=== PATIENT | male | born 1980 | race Caucasian/White ===

== ENCOUNTER 2024-09-20 10:39 | Emergency (ER) | payer MEDICARE, MEDICAID, SELFPAY ==
--- NOTE | ~2024-09-20 | XR_ITS ---
EXAM/PROCEDURE: XR chest 2V - 09/20/2024 12:00 CDT HISTORY: 44 years old Male with AMS TECHNIQUE: Two view(s) of the chest. COMPARISON: None available. FINDINGS: LUNGS/ PLEURA: No focal consolidation. No appreciable pneumothorax or large pleural effusion. HEART/ MEDIASTINUM: Heart appears normal in size. BONES: No acute osseous abnormality. OTHER: Visualized upper abdomen is unremarkable. IMPRESSION: No acute process. Reviewed, dictated and finalized at location A. IMPRESSION: No acute process.
[2024-09-20 11:01] VITALS: BP 117/75; PULSE 103; RESP 16; TEMP 36.6; O2SAT 100
--- OUTSIDE RECORDS SUMMARY | 2024-09-20 11:42 | XMS_ITS | Encounter Summary ---
Author Organization [facility] Address [address] [place] [address] Phone Care Team Providers Care Employee Benefits Coordinator Name Role Phone Genaro Joseph DPM Unavailable [phone] Luis E Trent MD Unavailable Gregoria Carver PAC Primary Care Pro vider Reason for Visit * Reason Comments Medication Refill Encounter Details Date Type Department Care Team (Late st Contact Info) Description 08/15/2023 Refill [facility] - Internal Medicine [facility] [address] [place] [address] Tavo Vargas MD [address] [address] Medication Refill Social History Tobacco Use Types Packs/Day Years Used Date Smoking Tobacco: Every Day Cigarettes Last attempted to quit: 06/16/2021 Cigars Passive Smoke Exposure: Current Smokeless Tobacco: Never Alcohol Use Standard Drinks/Week Comments Not Currently 0 (1 standard drink = 0.6 oz pure alcohol) beer and wine coolers occaisionally. [facility] Utilities Answer Date Recorded In the past 12 months has e electric, gas, oil, or water company threatened to shut off services in your home? Patient unable to answer 06/07/2023 Social Connection and Isolation Panel Answer Date Recorded In a typical week, how many times do you talk on the phone with family, friends, or neighbors? Patient unable to answer 06/07/2023 How often do you get togethe r with friends or relatives? Patient unable to answer 06/07/2023 How often do you attend chur ch or holiness services? Patient unable to answer 06/07/2023 Do you belong to any clubs o r organizations such as pentecostal groups, unions, fraternal or athletic groups, or school groups? Patient unable to answer 06/07/2023 How often do you attend meet ings of the clubs or organizations you belong to? Patient unable to answer 06/07/2023 Are you , , di vorced, , never , or living with a partner? Patient unable to answer 06/07/2023 AUDIT-C Answer Date Recorded Q1: How often do you have a drink containing alcohol? Patient unable to answer 06/07/2023 Q2: How many drinks containi ng alcohol do you have on a typical day when you are drinking? Patient unable to answer Q3: How often do you have si x or more drinks on one occasion? Patient unable to answer 06/07/2023 Overall Financial Resource Strain (CARDIA) Answe r Date Recorded How hard is it for you to pa y for the very basics like food, housing, medical care, and heating? Patient unable to answer 06/07/2023 PHQ-2 Answer Date Recorded Total Score - Questions 1-9 0 05/11 Exercise Vital Sign Answer Date Recorde d On average, how many days pe r week do you engage in moderate to strenuous exercise (like a brisk walk)? Patient unable to answer 06/07/2023 On average, how many minutes do you engage in exercise at this level? Patient unable to answer 06/07/2023 Hunger Vital Sign Answer Date Recorded Within the past 12 months, y ou worried that your food would run out before you got the money to buy more. Patient unable to answer 06/07/2023 Within the past 12 months, t he food you bought just didn't last and you didn't have money to get more. Patient unable to answer 06/07/2023 PRAPARE - Transportation Answer Date Re corded In the past 12 months, has l ack of transportation kept you from medical appointments or from getting medications? Patient unable to answer 06/07/2023 In the past 12 months, has l ack of transportation kept you from meetings, work, or from getting things needed for daily living? Patient unable to answer 06/07/2023 Housing Stability Vital Sign Answer Esteban e Recorded In the last 12 months, was t here a time when you were not able to pay the mortgage or rent on time? Patient unable to answer 06/07/2023 In the last 12 months, how m any places have you lived? 1 06/07/2023 In the last 12 months, was t here a time when you did not have a steady place to sleep or slept in a alf (including now)? Patient unable to answer 06/07/2023 Education Answer Date Recorded What is the highest level of school you have completed or the highest degree you have received? 12th grade 05/25/2022 Sexually Active Control Partners Comments Not Currently Sex and Gender Information Value Date Recorded Sex Assigned at Not on file Legal Sex Male 7:37 PM CDT Gender Identity Male 05/31/2024 12:34 PM CDT Sexual Orientation Not on file documented as of this encounter Miscellaneous Notes * Telephone Encounter - Sherin Sierra RN - 08/15/2023 9:01 AM CDT Medication failed the protocol, provider to review and approve the medication order if appropriate. Requested Prescriptions Pending Prescriptions Disp Refills atorvastatin (LIPITOR) 40 MG Tablet [Pharmacy Med Name: Atorvastatin Calcium 40MG TABS] 28 Tablet 0 Sig: TAKE 1 TABLET BY MOUTH EVERY EVENING Hmg CoA Reductase Inhibitors Protocol Failed - 08/15/2023 8:43 AM Failed - Lipid panel in past 12 months LDL Date Value Ref Range Status 05/31/2022 67 5 - 130 mg/dL Final HDL CHOLESTEROL Date Value Ref Range Status 05/31/2022 38.1 (L) >40 mg/dL Final CHOLESTEROL Date Value Ref Range Status 05/31/2022 117 <=200 mg/dL Final TRIGLYCERIDES Date Value Ref Range Status 05/31/2022 60 <150 mg/dL Final VLDL Date Value Ref Range Status 05/31/2022 12 5 - 55 mg/dL Final CHOL/HDL RATIO Date Value Ref Range Status 05/31/2022 3.1 0.0 - 4.4 Final NON-HDL CHOLESTEROL Date Value Ref Range Status 05/31/2022 78.9 <130 mg/dL Final Passed - Visit with relevant provider in past 12 months or upcoming 90 days Recent Visits Date Type Provider Dept 06/07/23 Office Visit Gregoria Carver, PAC [facility] 02/28/23 Office Visit Gregoria Carver, PAC [facility] 01/31/23 Office Visit Gregoria Carver, PAC [facility] 10/03/22 Office Visit Greogria Carver, PAC [facility] 09/19/22 Office Visit Gregoria Carver, PAC [facility] Showing recent visits within past 365 days and meeting all other requirements Future Appointments Date Type Provider Dept 08/29/23 Appointment Gregoria Carver, PAC [facility] Showing future appointments within next 90 days and meeting all other requirements Passed - CMP in past 12 months SODIUM Date Value Ref Range Status 05/23/2023 137 136 - 145 mmol/L Final POTASSIUM Date Value Ref Range Status 05/23/2023 3.8 3.5 - 5.1 mmol/L Final CHLORIDE Date Value Ref Range Status 05/23/2023 108 (H) 98 - 107 mmol/L Final CO2, VENOUS Date Value Ref Range Status 05/23/2023 20 (L) 22 - 30 mmol/L Final ANION GAP Date Value Ref Range Status 05/23/2023 12.8 <18.0 mmol/L Final GLUCOSE Date Value Ref Range Status 05/23/2023 120 (H) 70 - 99 mg/dL Final BUN Date Value Ref Range Status 05/23/2023 13 9 - 21 mg/dL Final CREATININE, BLOOD Date Value Ref Range Status 05/25/2023 0.87 0.70 - 1.30 mg/dL Final BUN/CREATININE RATIO Date Value Ref Range Status 05/23/2023 15 12 - 20 ratio Final TOTAL PROTEIN Date Value Ref Range Status 05/23/2023 6.6 6.3 - 8.2 g/dL Final ALBUMIN Date Value Ref Range Status 05/23/2023 3.7 3.5 - 5.0 g/dL Final A/G RATIO Date Value Ref Range Status 05/23/2023 1.3 1.0 - 2.2 Final CALCIUM Date Value Ref Range Status 05/23/2023 8.8 8.7 - 10.5 mg/dL Final T BILI Date Value Ref Range Status 05/23/2023 0.3 0.2 - 1.2 mg/dL Final SGOT (AST) Date Value Ref Range Status 05/23/2023 25 5 - 34 U/L Final SGPT (ALT) Date Value Ref Range Status 05/23/2023 31 0 - 55 U/L Final ALKALINE PHOSPHATASE Date Value Ref Range Status 05/23/2023 76 40 - 150 U/L Final GFR, EST. NONAFRICAN Date Value Ref Range Status 05/25/2023 >60 >=60 Final GFR, EST. Date Value Ref Range Status 05/25/2023 >60 >=60 Final GFR, ESTIMATED Date Value Ref Range Status 05/25/2023 >60 >=60 Final Comment: Creatinine Clearance is the preferred criteria for selecting drug dose adjustments in renally impaired patients. The GFR is provided as additional pertinent clinical information. GFR is reported in mL/min/1.73 sq m. Calculation based on the Chronic Kidney Disease Epidemiology Collaboration (CKD- EPI) equation refitwithout adjustment for race. IS THE PATIENT REQUIRED TO BE FASTING? Date Value Ref Range Status 05/31/2022 No Final documented in this encounter Plan of Treatment Upcoming Encounters Date Type Department Care Team (Late st Contact Info) Description 10/14/2024 11:30 AM CDT Office Visit [facility] [address] [place] [address] Billy Hubbard MD [address] [place] [address] Discharge Disposition: Discharged to home or Selfcare 11/27/2024 11:00 AM CDT Office Visit [facility] - Endocrinology [facility] [address] [place] [address] Luis E Trent MD [address] [place] [facility] [address] [place] [address] 12/04/2024 2:00 PM CDT Office Visit [facility] - Internal Medicine [facility] [address] [place] [address] Gregoria Carver, PAC [address] [place] [address] documented as of this encounter Visit Diagnoses Not on filedocumented in this encounter Additional Health Concerns Assessment Noted Time PHQ-9 Depression Total Score: 0 05/26/19 23 1:00 PM CDT documented as of this encounter Care Teams Employee Benefits Coordinator Relationship Specialty Start Date End Date Gregoria Carver, PAC [address] [place] [address] PCP - General Physician Relationship Banker 02/22/21 Genaro Joseph DPM Consulting Physician Podiatry 10/19/15 Luis E Trent MD [address] [address] Consulting Physician Endocrinology 03/31/20 documented as of this encounter
--- OUTSIDE RECORDS SUMMARY | 2024-09-20 11:42 | XMS_ITS | Encounter Summary ---
Author Organization [facility] Address [address] [place] [address] Phone Care Team Providers Care Artificial Flower Maker Name Role Phone Genaro Joseph DPM Unavailable [phone] Luis E Trent MD Unavailable Gregoria Carver PAC Primary Care Pro vider Reason for Visit * Reason Comments Medication Refill Encounter Details Date Type Department Care Team (Late st Contact Info) Description 06/13/2023 Refill [facility] - Internal Medicine - [place] [address] [place] [address] Gregoria Carver, PAC [address] [facility] [address] Medication Refill Social History Tobacco Use Types Packs/Day Years Used Date Smoking Tobacco: Every Day Cigarettes Last attempted to quit: 06/16/2021 Cigars Passive Smoke Exposure: Current Smokeless Tobacco: Never Alcohol Use Standard Drinks/Week Comments Not Currently 0 (1 standard drink = 0.6 oz pure alcohol) beer and wine coolers occaisionally. [facility] Utilities Answer Date Recorded In the past 12 months has [employer], gas, oil, or water company threatened to [...] 06/07/2023 How often do you attend chur or holiness services? Patient unable to answer 06/07/2023 Do you belong to any clubs o r organizations such as latter-day groups, unions, fraternal or athletic groups, or [...] place to sleep or slept in a assisted (including now)? Patient unable to answer 06/07/2023 [...] Telephone Encounter - Sherin Sierra RN - 06/13/2023 10:18 AM CDT Medication failed the protocol, provider to review and approve the medication order if appropriate. Requested Prescriptions Pending Prescriptions Disp Refills atorvastatin (LIPITOR) 40 MG Tablet [Pharmacy Med Name: Atorvastatin Calcium 40MG TABS] 28 Tablet 0 Sig: TAKE 1 TABLET BY MOUTH EVERY EVENING Hmg CoA Reductase Inhibitors Protocol Failed - 06/13/2023 9:23 AM Failed - Lipid panel in past [...] Office Visit Gregoria Carver, PAC [facility] 02/28/23 Office Visit Gregoria Carver, PAC [facility] 01/31/23 Office Visit Gregoria Carver, PAC [facility] 10/03/22 Office Visit Gregoria Carver, PAC [facility] 09/19/22 Office Visit Gregoria Carver, PAC [facility] Showing recent visits within past 365 days and meeting all other requirements Future Appointments Date Type Provider Dept 08/29/23 Appointment Gregoria Carver, PAC [facility] Showing future appointments within next 90 [...] Value Ref Range Status 05/31/2022 No Final lisinopril (PRINIVIL, ZESTRIL) 40 MG Tablet [Pharmacy Med Name: Lisinopril 40MG TABS] 28 Tablet 0 Sig: TAKE 1 TABLET BY MOUTH DAILY FOR BLOOD PRESSURE KATIE Inhibitors Protocol Passed - 06/13/2023 9:23 AM Passed - Serum potassium on record in past 12 months POTASSIUM Date Value Ref Range Status 05/23/2023 3.8 3.5 - 5.1 mmol/L Final Passed - Blood pressure on record in past 12 months Clinician-entered: BP Readings from Last 3 Encounters: 06/07/23 106/58 05/30/23 110/76 05/25/23 112/68 Patient-entered: No data recorded Passed - Visit with relevant provider in past 12 months or upcoming 90 days Recent Visits Date Type Provider Dept 06/07/23 Office Visit Gregoria Carver PAC [facility] 02/28/23 Office [facility] 01/31/23 Office Visit Gregoria Carver, PAC [facility] 10/03/22 Office Visit Gregoria Carver, PAC [facility] 09/19/22 Office Visit Gregoria Carver, PAC [facility] Showing recent visits within past 365 days and meeting all other requirements Future Appointments Date Type Provider Dept 08/29/23 Appointment Gregoria Carver, PAC [facility] Showing future appointments within next 90 days and meeting all other requirements Passed - GFR on record in past 12 months GFR, EST. NONAFRICAN Date Value Ref Range Status 05/25/2023 >60 >=60 Final documented in this encounter Plan of Treatment Upcoming Encounters Date Type Department Care Team (Late st Contact Info) Description 10/14/2024 11:30 AM CDT Office Visit [facility] [address] [place] [address] Billy Hubbard MD [address] [place] [address] Discharge Disposition: Discharged to home or Selfcare 11/27/2024 11:00 AM CDT Office Visit [facility] - Endocrinology [facility] [address] [place] [address] Luis E Trent MD [address] [address] 12/04/2024 2:00 PM CDT Office Visit [facility] - Internal Medicine - [place] [address] [place] [address] Gregoria Carver, PAC [address] [place] [address] documented as of this encounter Visit Diagnoses Not on filedocumented in this encounter Additional Health Concerns Assessment Noted Time PHQ-9 Depression Total Score: 0 05/26/19 23 1:00 PM CDT documented as of this encounter Care Teams Artificial Flower Maker Relationship Specialty Start Date End Date Gregoria Carver, PAC [address] [place] [address] PCP - General Physician Watchmaker Apprentice 02/22/21 Genaro Joseph DPM Consulting Physician Podiatry 10/19/15 Luis E Trent MD [address] [address] Consulting Physician Endocrinology 03/31/20 documented as of this encounter
--- OUTSIDE RECORDS SUMMARY | 2024-09-20 11:42 | XMS_ITS | Encounter Summary ---
Author Organization [facility] Address [address] [place] [address] Phone Care Team Providers Care Records Tech Name Role Phone Genaro Joseph DPM Unavailable [phone] Luis E Trent MD Unavailable Gregoria Carver PAC Primary Care Pro vider Reason for Visit * Reason Comments Medication Refill Encounter Details Date Type Department Care Team (Late st Contact Info) Description 12/07/2021 Refill [facility] [address] [place] [address] Luis E Trent MD [address] [address] Medication Refill Social History Tobacco Use Types Packs/Day Years Used Date Smoking Tobacco: Former Cigarettes Q uit: 06/16/2021 Cigars Smokeless Tobacco: Never Alcohol Use Standard Drinks/Week Comments Not Currently 0 (1 standard drink = 0.6 oz pure alcohol) beer and wine coolers occaisionally. PHQ-2 Answer Date Recorded Total Score - Questions 1-9 0 04/0 09/2021 Sexually Active Control Partners Comments Not Currently Sex and Gender Information Value Date Recorded Sex Assigned at Not on file Legal Sex Male 7:37 PM CDT Gender Identity Male 05/31/2024 12:34 PM CDT Sexual Orientation Not on file COVID-19 Exposure Response Date Recorded In the last 10 days, have yo u been in contact with someone who was confirmed or suspected to have Coronavirus/COVID-19? No / Unsure 11/30/2021 10:30 AM CDT documented as of this encounter Miscellaneous Notes * Telephone Encounter - Iqra Rodriguez, RN - 12/07/2021 11:54 AM CDT Requested Prescriptions Pending Prescriptions Disp Refills ??? B-D ULTRAFINE III SHORT PEN 31G X 8 MM Misc [Pharmacy Med Name: BD UF SHORT PEN NEEDLE [id number]]3 Sig: USE WITH INSULIN FOUR TIMES A DAY, MUST MAKE APPT Next appt: 12/30/2021 documented in this encounter Plan of Treatment Upcoming Encounters Date Type Department Care Team (Late st Contact Info) Description 10/14/2024 11:30 AM CDT Office Visit [facility] [address] [place] [address] Billy Hubbard MD [address] [place] [address] Discharge Disposition: Discharged to home or Selfcare 11/27/2024 11:00 AM CDT Office Visit [facility] [address] [place] [address] Luis E Trent MD #[address] [address] 12/04/2024 2:00 PM CDT Office Visit [facility] - Internal Medicine - [place] [address] [place] [id number] Gregoria Carver, [facility] [address] [place] [address] documented as of this encounter Visit Diagnoses Diagnosis Type 2 diabetes mellitus with diabetic polyneuropathy, with long-term current use of insulin (HCC) documented in this encounter Additional Health Concerns Infection Onset Date Last Indicated Resolved Time 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
--- OUTSIDE RECORDS SUMMARY | 2024-09-20 11:42 | XMS_ITS | Encounter Summary ---
Author Organization [facility] Address [address] [place] [address] Phone Care Team Providers Care Blowing Weasand Name Role Phone Genaro Joseph DPM Unavailable [phone] Luis E Trent MD Unavailable Gregoria Carver PAC Primary Care Pro vider Reason for Visit * Reason Comments Medication Refill Encounter Details Date Type Department Care Team (Late st Contact Info) Description 05/16/2023 Refill [facility] Medical Group - Internal Medicine - [place] [address] [place] [address] Gregoria Carver, PAC [address] [facility] [address] Medication Refill Social History Tobacco Use Types Packs/Day Years Used Date Smoking Tobacco: Former Cigarettes Q uit: 06/16/2021 Cigars Passive Smoke Exposure: Current Smokeless Tobacco: Never Alcohol Use Standard Drinks/Week Comments Not Currently 0 (1 standard drink = 0.6 oz pure alcohol) beer and wine coolers occaisionally. [facility] Utilities Answer Date Recorded In the past 12 months has [employer], gas, oil, or water [employer] threatened to shut off services in your home? Already shut off 05/19/2023 PHQ-2 Answer Date Recorded Total Score - Questions 1-9 0 05/11 Hunger Vital Sign Answer Date Recorded Within the past 12 months, y ou worried that your food would run out before you got the money to buy more. Never true 05/19/19 24 Within the past 12 months, t he food you bought just didn't last and you didn't have money to get more. Never true 05/19/2023 PRAPARE - Transportation Answer Date Re corded In the past 12 months, has l ack of transportation kept you from medical appointments or from getting medications? No 10/2023 In the past 12 months, has l ack of transportation kept you from meetings, work, or from getting things needed for daily living? No 05/19/2023 Housing Stability Vital Sign Answer Esteban e Recorded In the last 12 months, was t here a time when you were not able to pay the mortgage or rent on time? No 05/19/2023 In the last 12 months, how many places have you lived? 1 05/19/2023 In the last 12 months, was t here a time when you did not have a steady place to sleep or slept in a half-way (including now)? No 05/19/2023 Education Answer Date Recorded What is the [...] Telephone Encounter - Sherin Sierra RN - 05/17/2023 9:43 AM CST Medication(s) refilled and signed per [facility] Chronic Medication Refill Standing Order for Pediatricand Adult Patients. Requested Prescriptions Pending Prescriptions Disp Refills lisinopril (PRINIVIL, ZESTRIL) 40 MG Tablet [Pharmacy Med Name: Lisinopril 40MG TABS] 28 Tablet 0 Sig: TAKE 1 TABLET BY MOUTH DAILY FOR BLOOD PRESSURE KATIE Inhibitors Protocol Passed - 05/16/2023 1:19 PM Passed - Serum potassium on record in past 12 months POTASSIUM Date Value Ref Range Status 05/12/2023 4.0 3.5 - 5.1 mmol/L Final Passed - Blood pressure on record in past 12 months Clinician-entered: BP Readings from Last 3 Encounters: 05/12/23 (!) 143/94 03/22/23 112/74 02/28/23 110/72 Patient-entered: No data recorded Passed - Visit with relevant provider in past 12 months or upcoming 90 days Recent Visits Date Type Provider Dept 02/28/23 Office Visit Gregoria Carver, PAC [facility] 01/31/23 Office Visit Gregoria Carver, PAC [facility] 10/03/22 Office Visit Gregoria Carver, PAC [facility] 09/19/22 Office Visit Gregoria Carver, PAC [facility] 05/25/22 Office Visit Gregoria Carver PAC [facility] Showing recent visits within past 365 days and meeting all other requirements Future Appointments No visits were found meeting these conditions. Showing future appointments within next 90 days and meeting all other requirements Passed - GFR on record in past 12 months GFR, EST. NONAFRICAN Date Value Ref Range Status 05/12/2023 >60 >=60 Final atorvastatin (LIPITOR) 40 MG Tablet [Pharmacy Med Name: Atorvastatin Calcium 40MG TABS] 28 Tablet 0 Sig: TAKE 1 TABLET BY MOUTH EVERY EVENING Hmg CoA Reductase Inhibitors Protocol Passed - 05/16/2023 1:19 PM Passed - Visit with relevant provider in past 12 months or upcoming 90 days Recent Visits Date Type Provider Dept 02/28/23 Office Visit Gregoria Carver, PAC [facility] 01/31/23 Office Visit Gregoria Carver, PAC [facility] 10/03/22 Office Visit Gregoria Carver, PAC [facility] 09/19/22 Office Visit Gregoria Carver, PAC [facility] 05/25/22 Office Visit Gregoria Carver, PAC [facility] Showing recent visits within past 365 days and meeting all other requirements Future Appointments No visits were found meeting these conditions. Showing future appointments within next 90 days and meeting all other requirements Passed - Lipid panel in past 12 months [...] 05/31/2022 78.9 <130 mg/dL Final Passed - CMP in past 12 months SODIUM Date Value Ref Range Status 05/12/2023 132 (L) 136 - 145 mmol/L Final POTASSIUM Date Value Ref Range Status 05/12/2023 4.0 3.5 - 5.1 mmol/L Final CHLORIDE Date Value Ref Range Status 05/12/2023 103 98 - 107 mmol/L Final CO2, VENOUS Date Value Ref Range Status 05/12/2023 21 (L) 22 - 30 mmol/L Final ANION GAP Date Value Ref Range Status 05/12/2023 12.0 <18.0 mmol/L Final GLUCOSE Date Value Ref Range Status 05/12/2023 88 70 - 99 mg/dL Final BUN Date Value Ref Range Status 05/12/2023 23 (H) 9 - 21 mg/dL Final CREATININE, BLOOD Date Value Ref Range Status 05/12/2023 0.86 0.70 - 1.30 mg/dL Final BUN/CREATININE RATIO Date Value Ref Range Status 05/12/2023 27 (H) 12 - 20 ratio Final TOTAL PROTEIN Date Value Ref Range Status 05/12/2023 7.3 6.3 - 8.2 g/dL Final ALBUMIN Date Value Ref Range Status 05/12/2023 4.4 3.5 - 5.0 g/dL Final A/G RATIO Date Value Ref Range Status 05/12/2023 1.5 1.0 - 2.2 Final CALCIUM Date Value Ref Range Status 05/12/2023 8.5 (L) 8.7 - 10.5 mg/dL Final T BILI Date Value Ref Range Status 05/12/2023 0.5 0.2 - 1.2 mg/dL Final SGOT (AST) Date Value Ref Range Status 05/12/2023 18 5 - 34 U/L Final SGPT (ALT) Date Value Ref Range Status 05/12/2023 17 0 - 55 U/L Final ALKALINE PHOSPHATASE Date Value Ref Range Status 05/12/2023 84 40 - 150 U/L Final GFR, EST. NONAFRICAN Date Value Ref Range Status 05/12/2023 >60 >=60 Final GFR, EST. Date Value Ref Range Status 05/12/2023 >60 >=60 Final GFR, ESTIMATED Date Value Ref Range Status 05/12/2023 >60 >=60 Final Comment: Creatinine Clearance is [...] Value Ref Range Status 05/31/2022 No Final TROENCEPHALOGRAPH TECHNICIAN documented in this encounter Plan of Treatment Upcoming Encounters Date Type Department Care Team (Late st Contact Info) Description 10/14/2024 11:30 AM CDT [facility] [address] [place] [id number] Billy Hubbard MD [address] [place] [address] Discharge Disposition: Discharged to home or Selfcare 11/27/2024 11:00 AM CDT Office Visit [facility] Medical Group - Endocrinology [facility] #[address] [place] [id number] Luis E Trent MD [address] [address] 12/04/2024 2:00 PM CDT Office [facility] - [facility] - [place] [address] [place] [phone] Gregoria Carver, PAC [address] [place] [address] documented as of this encounter Visit Diagnoses Not on filedocumented in this encounter Additional Health Concerns Infection Onset Date Last Indicated Resolved Time 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
--- OUTSIDE RECORDS SUMMARY | 2024-09-20 11:42 | XMS_ITS | Encounter Summary ---
Author Organization [facility] Address [address] [place] [address] Phone Care Team Providers Care Brick Extruder Operator Name Role Phone Genaro Joseph DPM Unavailable Luis E Trent MD Unavailable Gregoria Carver PAC Primary Care Pro vider Reason for Visit * Reason Comments Medication Refill Encounter Details Date Type Department Care Team (Late st Contact Info) Description 04/25/2022 Refill [facility] [address] [place] [address] Luis E Trent MD [address] [address] Medication Refill Social History Tobacco [...] suspected to have Coronavirus/COVID-19? No / Unsure 04/19/2022 2:01 PM BAG LOADER MACHINE OPERATOR documented as of this encounter Miscellaneous Notes * Telephone Encounter - Iqra Rodriguez RN - 04/26/2022 8:58 AM BAG LOADER MACHINE OPERATOR Requested Prescriptions Pending Prescriptions Disp Refills ??? metFORMIN (GLUCOPHAGE) 1000 MG Tablet [Pharmacy Med Name: metFORMIN HCl 1000MG TABS*] 56 Tablet Sig: TAKE 1 TABLET BY MOUTH TWICE A DAY WITH FOOD Next appt: 08/02/2022 LOADER MACHINE OPERATOR documented in this encounter Plan of Treatment Upcoming Encounters Date Type Department Care Team (Late st Contact Info) Description 10/14/2024 11:30 AM CDT [facility] [address] [place] [address] Billy Hbubard MD [address] [place] [address] Discharge Disposition: Discharged to home or Selfcare 11/27/2024 11:00 AM CDT Office Visit [facility] Medical Group - Endocrinology [facility] [address] [place] [address] Luis E Trent MD #[address] [address] 12/04/2024 2:00 PM CDT Office Visit [facility] Medical Group - Internal Medicine [facility] [address] [place] [address] Gregoria Carver, [facility] [address] [place] [address] documented as of this encounter Visit Diagnoses Not on filedocumented in this encounter Additional Health Concerns Infection Onset Date Last Indicated Resolved Time MRSA 10/04/2022 02/06/2023 05/22/2023 9:05 AM CDT documented as of this encounter Care Teams Brick Extruder Operator Relationship Specialty Start Date End Date Gregoria Carver PAC [address] [place] [address] PCP - General Physician Bill Cutter 02/22/21 Genaro Joseph DPM Consulting Physician Podiatry 10/19/15 Luis E Trent MD #[address] [address] Consulting Physician Endocrinology 03/31/20 documented as of this encounter
--- OUTSIDE RECORDS SUMMARY | 2024-09-20 11:42 | XMS_ITS | Encounter Summary ---
Author Organization [facility] Address [address] [place] [address] Phone Care Team Providers Care Senior Management Consultant Name Role Phone Genaro Joseph DPM Unavailable [phone] Luis E Trent MD Unavailable Gregoria Carver PAC Primary Care Pro vider Reason for Visit * Reason Comments Medication Refill Encounter Details Date Type Department Care Team (Late st Contact Info) Description 07/25/2023 Refill [facility] Medical Group - Endocrinology [facility] [address] [place] [address] Luis E Trent MD #[address] [address] Medication Refill Social History Tobacco Use Types Packs/Day Years Used Date Smoking Tobacco: Every Day Cigarettes Last attempted to quit: 06/16/2021 Cigars Passive Smoke Exposure: Current Smokeless Tobacco: Never Alcohol Use Standard Drinks/Week Comments Not Currently 0 (1 standard drink = 0.6 oz pure alcohol) beer and wine coolers occaisionally. [facility] Utilities Answer Date Recorded In the past 12 months has [employer], gas, oil, or water company threatened to [...] often do you attend chur ch or mormon services? Patient unable to answer 06/07/2023 Do you belong to any clubs o r organizations such as mosque groups, unions, fraternal or athletic groups, or [...] place to sleep or slept in a [place] [facility] [place] (including now)? Patient unable to answer 06/07/2023 [...] Telephone Encounter - Iqra Rodriguez RN - 07/26/2023 8:19 AM CDT Medication(s) refilled and signed per [facility] Chronic Medication Refill Standing Order for Pediatric and Adult Patients. documented in this encounter Plan of Treatment Upcoming Encounters Date Type Department Care Team (Late st Contact Info) Description 10/14/2024 11:30 AM CDT [facility] [address] [place] [address] Billy Hubbard MD [address] [place] [address] Discharge Disposition: Discharged to home or Selfcare 11/27/2024 11:00 AM CDT [facility] - [place] [address] [place] [address] Luis E Trent MD [address] [place] [address] [address] 12/04/2024 2:00 PM CDT Office Visit [facility] Medical Group - Internal Medicine - [place] [address] [place] [address] Gregoria Carver, PAC [address] [place] [address] documented as of this encounter Visit Diagnoses Not on filedocumented in this encounter Additional Health Concerns Assessment Noted Time PHQ-9 Depression Total Score: 0 05/26/19 23 1:00 PM CDT documented as of this encounter Care Teams Senior Management Consultant Relationship Specialty Start Date End Date Gregoria Carver, PAC [address] [place] [address] PCP - General Physician Checker Dump Grounds 02/22/21 Genaro Joseph DPM Consulting Physician Podiatry 10/19/15 Luis E Trent MD [address] [place] [address] [address] Consulting Physician Endocrinology 03/31/20 documented as of this encounter
--- OUTSIDE RECORDS SUMMARY | 2024-09-20 11:42 | XMS_ITS | Clinical Summary ---
Author Organization [facility] Address [address] [facility], [place] [address] Phone Care Team Providers Care Desulfurizer Operator Name Role Phone Genaro Joseph DPM Unavailable [phone] Luis E Trent MD Unavailable Gregoria Carver PAC Primary Care Pro vider Allergies Active Allergy Reactions Criticality Noted Date Comments Ziprasidone Unknown 05/20/2024 Medications lurasidone (LATUDA) 40 MG TabletIndicatio ns:depression Take 120 mg by mouth nightly. Indications: depression Active Blood Glucose Monitoring Suppl (True Metrix Air Glucose Meter) w/Device Kit 1 Kit by Does not apply route daily. Test blood glucose 4x daily. E11.9, insulin dependent 1 Kit 2 Active polyethylene glycol (GLYCOLAX, MIRALAX) 17 g PackIndications :Constipation Take 1 Packet by mouth 2 times daily as needed for Constipation - 1st line. Dissolve in 4-8 oz of liquid. Indications: Constipation 90 Packet 4 Active Additional Information Patient not taking.Reported on 08/21/2024 Blood Glucose Monitoring Suppl Device Diagnosis: Diabetes type 2 Blood testing frequency: 4 times a day; E11.9 1 Each 4 Active Lancets Misc Test blood glucose 4x daily; E11.9 400 Lancet 3 4 Active TRUEplus Lancets 33G Misc 1 Lancet by Does not apply route 4 times daily. Test blood glucose 4x daily. E11.9, insulin dependent 400 Each 4 Active omeprazole (PriLOSEC) 20 MG CAPSULE DELAYED RELEASE Take 20 mg by mouth daily. Active Lurasidone HCl 120 MG Tablet Take 120 mg by mouth nightly. Active Glucose Blood Strip Diagnosis: Diabetes type 2 Blood testing frequency: 4 times a day: E11.9 400 Each 3 5 Active Glucose Blood (True Metrix Blood Glucose Test) Strip Test blood glucose 2x daily. E11.9, insulin dependent 200 Strip 5 Active atorvastatin (LIPITOR) 40 MG Tablet TAKE 1 TABLET BY MOUTH EVERY EVENING 30 Tablet 2 5 Active metFORMIN (GLUCOPHAGE) 1000 MG Tablet Take 1 Tablet by mouth 2 times daily. 180 Tablet 5 Active semaglutide, 1 MG/DOSE, (Ozempic, 1 MG/DOSE,) 4 MG/3ML Solution Pen-injector 1 mg by Subcutaneous route once a week. 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 Hypoglycemia 05/19/2023 Tobacco dependence 05/19/2023 Hypothermia 05/19/2023 Diabetic foot ulcer 05/19/2023 Dehydration 05/19/2023 Elevated CK 05/19/2023 Schizophrenia 05/19/2023 Alcohol use 02/28/2023 Living accommodation issues 02/28/2023 Overview (02/28/2023): Poor living conditions Hyponatremia 10/04/2022 Sepsis 10/03/2022 Fibromyalgia 09/19/2022 Rheumatoid arthritis 09/19/2022 Bipolar 1 disorder 09/19/2022 Developmental delay 09/19/2022 Osteomyelitis of right foot 11/09/2018 Osteomyelitis 11/01/2018 Sepsis due to cellulitis 10/27/2018 Hepatic steatosis 10/27/2018 Tobacco abuse 10/27/2018 Vitamin D deficiency disease 10/27/2018 Class 2 severe obesity due t o excess calories with serious comorbidity and body mass index (BMI) of 35.0 to 35.9 in adult 09/11/2018 High blood pressure 09/11/2018 Dermatophytosis of nail 09/06/2016 [place] or callus 11/10/2015 Type 2 diabetes mellitus wit h diabetic polyneuropathy, with long-term current use of insulin 11/10/2015 Overview (05/25/2022): Podiatry following Wound care following Hx of R great toe amputation Dr Trent following Diabetic polyneuropathy asso ciated with type 2 diabetes mellitus 11/10/2015 Anxiety Depression Overview (05/25/2022): Psyche following Te following Hypertension Diabetes Resolved Problems Problem Noted Date Diagnosed Date Resolved Date Infection of wound due to me thicillin resistant Staphylococcus aureus (MRSA) 10/10/2022 0 10/10/2022 Cellulitis of great toe of right foot 09/19/2022 10/10/2022 Ulcer of left great toe due to diabetes mellitus 11/10/2015 09/12/2017 Encounters Date Type Department Care Team Description 08/21/2024 11:00 AM CDT Office Visit [facility] Endocrinology [facility] [address] [place] [phone] Luis E Trent MD Type 2 diabetes mellitus with diabetic polyneuropathy, with long-term current use of insulin (HCC) (Primary Dx); Overweight; Financial difficulties Discharge Disposition: Discharged to home or Selfcare 08/21/2024 Travel 08/06/2024 Results Follow-Up [facility] Endocrinology [facility] [address] [place] [phone] Luis E Trent MD UR MICROALBUMIN/CREATIN INE RATIO RANDOM 08/06/2024 Results Follow-Up [facility] Primary Care Access [facility] [address] [place] [phone] Gregoria Carver PAC HEPATITIS C ANTIBODY 08/01/2024 Travel 08/01/2024 Refill [facility] Endocrinology [facility] [address] [place] [phone] Luis E Trent MD Medication Refill 08/01/2024 Refill [facility] - [place] [address] [place] [phone] Gregoria Carver, PAC Medication Refill 07/09/2024 Refill [facility] - [place] [address] [place] [address] Gregoria Carver, PAC Medication Refill 06/21/2024 [facility]ill [facility] - Endocrinology [facility] [address] [place] [phone] Luis E Trent MD Medication Refill from Last 3 Months Immunizations Immunization Administration Dates Next Due Covid-19, Mrna, Lnp-s, Pf, 1 00 Mcg Or 50 Mcg Dose (MODERNA) 03/15/2021,07/28/2020,06/30/2020 Influenza Vaccine 01/07/2012 Influenza Vaccine greater than 3 yrs 12/29/2018 Influenza Vaccine, MDCK,quad rivalent, pres free 12/06/2015 Influenza Vaccine, Quadrivalent, PF 11/04/2020,12/12/2019,01/01/2019,2015 Influenza, High-dose, Quadrivalent 01/12/2021 Influenza, Injectable, Quadrivalent 01/01/2019,1 Influenza, Seasonal, Injecta ble, Undefined 12/29/2018 Pneumococcal Vaccine Adult - 23 Valent 10/28/2018 TB Skin Test 10/12/2022 TDAP Vaccine 02/06/2018 Family History Relation Name Status Comments Father Mother Alive Social History Tobacco Use Types Packs/Day Years Used Date Smoking Tobacco: Former Cigarettes Q uit: 06/16/2021 Cigars Passive Smoke Exposure: Past Smokeless Tobacco: Never Tobacco Cessation:Counseling Given: No Alcohol Use Standard Drinks/Week Comments Not Currently 0 (1 standard drink = 0.6 oz pure alcohol) beer and wine coolers occaisionally. [facility] Utilities Answer Date Recorded In the past 12 months has [employer], gas, oil, or water [employer] threatened to shut off services in your home? Patient declined 05/29/2024 Social Connection and Isolation Panel Answer Date Recorded In a typical week, how many times do you talk on the phone with family, friends, or neighbors? Patient declined 05/29/2024 How often do you get togethe r with friends or relatives? Patient declined 05/29/2024 How often do you attend samaritan or jehovah's witness serv ices? Patient declined 05/29/2024 Do you belong to any clubs o r organizations such as samaritan groups, unions, fraternal or athletic groups, or school groups? Patient declined 05/29/2024 How often do you attend meet ings of the clubs or organizations you belong to? Patient declined 05/29/2024 Are you , , di vorced, , never , or living with a partner? Patient declined 05/29/2024 AUDIT-C Answer Date Recorded Q1: How often do you have a drink containing alc ohol? Patient declined 05/29/2024 Q2: How many drinks containi ng alcohol do you have on a typical day when you are drinking? Patient declined 05/29/2024 Q3: How often do you have si x or more drinks on one occasion? Patient declined 05/29/2024 Overall Financial Resource Strain (CARDIA) Answe r Date Recorded How hard is it for you to pa y for the very basics like food, housing, medical care, and heating? Patient declined 05/29/2024 PHQ-2 Answer Date Recorded Total Score - Questions 1-9 0 05/11 [facility] - Occupational Stress Questionnaire Answer Date Recorded Do you feel stress - tense, restless, nervous, or anxious, or unable to sleep at night because your mind is troubled all the time - these days? Patient declined 05/29/2024 Exercise Vital Sign Answer Date Recorde d On average, how many days pe r week do you engage in moderate to strenuous exercise (like a brisk walk)? 4 days 05/29/2024 On average, how many minutes do you engage in exercise at this level? 10 min 05/29/2024 Hunger Vital Sign Answer Date Recorded Within the past 12 months, y ou worried that your food would run out before you got the money to buy more. Patient declined Within the past 12 months, t he food you bought just didn't last and you didn't have money to get more. Patient declined PRAPARE - Transportation Answer Date Re corded In the past 12 months, has l ack of transportation kept you from medical appointments or from getting medications? No 05/11 In the past 12 months, has l ack of transportation kept you from meetings, work, or from getting things needed for daily living? No 05/29/2024 Housing Stability Vital Sign Answer Esteban e [...] place to sleep or slept in a senior living (including now)? Patient unable to answer 06/07/2023 Housing Stability Vital Sign Answer Esteban e Recorded In the last 12 months, was t here a time when you were not able to pay the mortgage or rent on time? No 05/29/2024 In the past 12 months, how m any times have you moved where you were living? 3 05/29/2024 At any time in the past 12 m [facility], were you homeless or living in a senior living (including now)? Yes 05/29/2024 Education Answer Date Recorded What is the highest level of school you have completed or the highest degree you have received? 12th grade 05/25/2022 Sexually Active Control Partners Comments Not Currently Sex and Gender Information Value Date Recorded Sex Assigned at Not on file Legal Sex Male 7:37 PM CDT Gender Identity Male 05/31/2024 12:34 PM CDT Sexual Orientation Not on file Last Filed Vital Signs Vital Sign Reading Time Taken Comments Blood Pressure 126/68 08/21/2024 10:52 AM CDT Pulse 89 08/21/2024 10:52 AM CDT Temperature 36.6 C (97.9 F) 08/21/2024 10:52 AM CDT Respiratory Rate 22 08/21/2024 10:52 AM CDT Oxygen Saturation 100% 08/21/2024 10:52 AM CDT Inhaled Oxygen Concentration - - Weight 97.1 kg (214 lb) 08/21/2024 10:52 AM CDT Height 193 cm (6' 4) 05/29/2024 2:25 PM CDT Body Mass Index 26.05 05/29/2024 2:25 PM CDT Plan of Treatment Upcoming Encounters Date Type Department Care Team (Late st Contact Info) Description 10/14/2024 11:30 AM CDT [facility] [address] [place] [address] Billy Hubbard MD [address] [place] [address] Discharge Disposition: Discharged to home or Selfcare 11/27/2024 11:00 AM CDT [facility] [address] [place] [address] Luis E Trent MD [address] [address] 12/04/2024 2:00 PM CDT Office Visit [facility] - [place] [address] [facility] [phone] Gregoria Carver, [facility] [address] [place] [address] Health Maintenance Due Date Last Done Comments Human Papillomavirus (HPV) Immunization (1 - Male 3-dose series) 07/05/1994 Hepatitis B Immunization (1 of 3 - 19+ 3-dose series) 07/05/1998 Diabetes: Eye Exam 08/25/2018 08/25/2017 Pneumococcal Immunization Combined (2 of 2 - PCV) 10/29/2019 10/28/2018 SARS-COV-2 Immunization (4 - season) 2023 03/15/2021, 07/28/2020, 06/30/2020 Cologuard 07/05/2024 Colonoscopy 07/05/2024 Colorectal Cancer Screening 07/05/2024 Immunochemical Fecal Occult Blood 07/05/2024 Influenza Immunization (#1) 2024 11/0 04/2020, 01/12/2021, 12/12/2019, Additional history exists Diabetes: Hemoglobin A1c 02/20/2025 025, 05/21/2024, 02/20/2024, Additional history exists Diabetes: Foot Exam 05/21/2025 05/21/2024, 9 Diabetes: Nephropathy Screening 08/01/2025 08/01/2024, 04/12/2024, 11/12/2023, Additional history exists Td Immunization Every 10 Years (Adults With 1 Tdap) 02/07/2028 02/06/2018 Respiratory Syncytial Virus (RSV) Immunization (Adult) (1 - 1-dose 75+ series) 07/05/2054 DTaP/Tdap/Td Immunization Discontinued 02/06/2018 Hepatitis C Virus (HCV) Screening Completed 08/01/2024 Meningococcal Immunization (ACWY) Aged Out No longer eligible based on patient's age to complete this topic Rotavirus Immunization Aged Out No lo nger eligible based on patient's age to complete this topic Procedures Procedure Name Priority Date/Time Associated Diagnosis Comments POCT GLYCOSYLATED HEMOGLOBIN Routine 08/21/2024 10:57 AM CDT Type 2 diabetes mellitus with diabetic polyneuropathy, with long-term current use of insulin (HCC) UR MICROALBUMIN/CREATINI NE RATIO RANDOM Routine 08/01/2024 2:55 PM CDT Type 2 diabetes mellitus with diabetic polyneuropathy, with long-term current use of insulin (HCC) HEPATITIS C ANTIBODY Routine 08/01/2024 2:55 PM CDT Need for hepatitis C screening test from Last 3 Months Results * (ABNORMAL) POCT GLYCOSYLATED HEMOGLOBIN (08/21/2024 10:57 AM CDT) HGB-A1C 6.5(A) 4 - 6 % Blood 08/21/2024 10:5 7 AM CDT Luis E Trent MD POINT OF CARE TESTING (MANUAL) F inal Result * UR MICROALBUMIN/CREATININE RATIO RANDOM (08/01/2024 2:55 PM CDT) RAN UR MICROALBUMIN 5.26 mg/dL 08/01/2024 4:30 PM CDT [facility] Comment:No reference range h as been established. Consider Clinical Correlation. CREATININE URINE 184.4 mg/dL 08/02/19 4:30 PM CDT [facility] Comment:No reference range h as been established. Consider Clinical Correlation. ALB/CREAT RATIO 29 0 - 30 mg/g CRE 08/01/2024 4:30 PM CDT [facility] Urine Non-Phlebotomy Collection / Unknown 08/01/2024 2:55 PM CDT 08/01/2024 4:06 PM CDT Luis E Trent MD URINE ORDERABLES Final Result Performing Organization Address City/[facility]/ZIP Co de Phone Number [facility] [address] [place] [address] * HEPATITIS C ANTIBODY (08/01/2024 2:55 PM CDT) [facility] hepatitis C antibody 0.17 <1 S/CO 08/01/2024 10:19 PM CDT [facility] Comment: Signal/Cutoff ratio < 0.79 is Nondetected Signal/Cutoff ratio 0.80-0.99 is Grayzone Signal/Cutoff ratio > 0.99 is Detected Supplemental assays are recommended if signal/cutoff ratio is >/=1.00. Signal/cutoff ratio result >/= 5.00 is 97% predictive of positivity for recombinant immunoblot assay (RIBA) and will be reported to the [place] Department of Public Health as required. Blood Venipuncture / Unknown 08/01/2024 2:55 PM CDT 08/01/2024 4:07 PM CDT Gregoria Carver PAC CHEMISTRY ORDERAB LES Final Result [facility] [address] [place] [address], [place] from Last 3 Months Insurance [place]ICA[place] MEDICARE Advance Directives * Full Code (Latest Code Status on File) Date Activated Date Inactivated Comments 05/19/2023 1:57 AM 05/25/2023 6:02 PM CPR-Full Essence tment: FULL ARREST: Attempt Resuscitation/CPR wit intubation and mechanical ventilation. PRE-ARREST: Use entire range of life support measures to stabilize the patient. * Full Code Date Activated Date Inactivated Comments 02/23/2023 8:57 AM 05/12/2023 9:43 AM * Full Code Date Activated Date Inactivated Comments 10/03/2022 11:01 PM 10/11/2022 5:59 PM CPR-Full [place] atment: FULL ARREST: Attempt Resuscitation/CPR wit intubation and mechanical ventilation. PRE-ARREST: Use entire range of life support measures to stabilize the patient. * Full Code Date Activated Date Inactivated Comments 09/19/2022 3:42 PM 09/22/2022 4:11 PM CPR-Full [place] atment: FULL ARREST: Attempt Resuscitation/CPR wit intubation and mechanical ventilation. PRE-ARREST: Use entire range of life support measures to stabilize the patient. * Full Code Date Activated Date Inactivated Comments 06/09/2022 11:43 AM 08/24/2022 11:17 AM Care Teams Desulfurizer Operator Relationship Specialty Start Date End Date Gregoria Carver PAC [address] [place] [address] PCP - General Physician Lecturer Of Portuguese 02/22/21 Genaro Joseph DPM Consulting Physician Podiatry 10/19/15 Luis E Trent MD [address] [address] Consulting Physician Endocrinology 03/31/20
--- OUTSIDE RECORDS SUMMARY | 2024-09-20 11:42 | XMS_ITS | Encounter Summary ---
Author Organization [facility] Address [address] [place] [address] Phone Care Team Providers Care Cafeteria Cashier Name Role Phone Genaro Joseph DPM Unavailable [phone] Luis E Trent MD Unavailable Gregoria Carver PAC Primary Care Pro vider Reason for Visit * Reason Comments Medication Refill Encounter Details Date Type Department Care Team (Late st Contact Info) Description 04/25/2022 Refill [facility] - Internal Medicine - [place] [address] [place] [phone] Gregoria Carver, PAC [address] [facility] [address] Medication Refill Social History Tobacco Use Types [...] Coronavirus/COVID-19? No / Unsure 04/19/2022 2:01 PM CLUTCH MECHANIC documented as of this encounter Miscellaneous Notes * Telephone Encounter - Sherin Sierra RN - 04/25/2022 11:08 AM CST Medication failed the protocol, provider to review and approve the medication order if appropriate. Requested Prescriptions Pending Prescriptions Disp Refills atorvastatin (LIPITOR) 40 MG Tablet [Pharmacy Med Name: Atorvastatin Calcium 40MG TABS] 28 Tablet 0 Sig: TAKE 1 TABLET BY MOUTH EVERY EVENING Hmg CoA Reductase Inhibitors Protocol Failed - 04/25/2022 10:32 AM Failed - Lipid panel in past 12 months LDL Date Value Ref Range Status 02/22/2021 59 5 - 130 mg/dL Final HDL CHOLESTEROL Date Value Ref Range Status 02/22/2021 35.0 (L) >40 mg/dL Final CHOLESTEROL Date Value Ref Range Status 02/22/2021 146 <=200 mg/dL Final TRIGLYCERIDES Date Value Ref Range Status 02/22/2021 258 (H) <150 mg/dL Final VLDL Date Value Ref Range Status 02/22/2021 52 5 - 55 mg/dL Final CHOL/HDL RATIO Date Value Ref Range Status 02/22/2021 4.2 0.0 - 4.4 Final NON-HDL CHOLESTEROL Date Value Ref Range Status 02/22/2021 111 <130 mg/dL Final Passed - Visit with relevant provider in past 12 months or upcoming 90 days Recent Visits Date Type Provider Dept 08/06/21 Office Visit Gregoria Carver, PAC [facility] [place] 08/04/21 Office Visit Gregoria Carver, PAC [facility] [place] 07/29/21 Office Visit Gregoria Carver, PAC [facility] [place] 07/15/21 Office Visit Gregoria Carver, PAC [facility] [place] 06/17/21 Office Visit Gregoria Carver, PAC [facility] [place] Showing recent visits within past 365 days and meeting all other requirements Future Appointments Date Type Provider Dept 05/11/22 Appointment Gregoria Carver, PAC [facility] [place] Showing future appointments within next 90 days and meeting all other requirements lisinopril (PRINIVIL, ZESTRIL) 40 MG Tablet [Pharmacy Med Name: Lisinopril 40MG TABS] 28 Tablet 0 Sig: TAKE 1 TABLET BY MOUTH DAILY FOR BLOOD PRESSURE KATIE Inhibitors Protocol Passed - 04/25/2022 10:32 AM Passed - Serum potassium on record in past 12 months POTASSIUM Date Value Ref Range Status 04/19/2022 4.3 3.5 - 5.1 mmol/L Final Passed - Blood pressure on record in past 12 months Clinician-entered: BP Readings from Last 3 Encounters: 04/19/22 124/74 03/17/22 124/72 02/10/22 118/60 Patient-entered: No data recorded Passed - Visit with relevant provider in past 12 months or upcoming 90 days Recent Visits Date Type Provider Dept 08/06/21 Office Visit Gregoria Carver, PAC [facility] [place] 08/04/21 Office Visit Gregoria Carver, PAC [facility] [place] 07/29/21 Office Visit Gregoria Carver, PAC [facility] [place] 07/15/21 Office Visit Gregoria Carver, PAC [facility] [place] 06/17/21 Office Visit Gregoria Carver PAC [facility] [place] Showing recent visits within past 365 days and meeting all other requirements Future Appointments Date Type Provider Dept 05/11/22 Appointment Gregoria Carver PAC [facility] [place] Showing future appointments within next 90 days and meeting all other requirements Passed - GFR on record in past 12 months GFR, EST. NONAFRICAN Date Value Ref Range Status 04/19/2022 >60 >=60 Final CH MECHANIC documented in this encounter Plan of Treatment Upcoming Encounters Date Type Department Care Team (Late st Contact Info) Description 10/14/2024 11:30 AM CDT Office Visit [facility] [address] [place] [address] Billy Hubbard MD [address] [place] [address] Discharge Disposition: Discharged to home or Selfcare 11/27/2024 11:00 AM CDT [facility] [address] [place] [address] Luis E Trent MD [address] [address] 12/04/2024 2:00 PM CDT Office Visit [facility] - Internal Medicine [facility] [address] [place] [phone] Gregoria Carver, [facility] [address] [place] [address] documented as of this encounter Visit Diagnoses Not on filedocumented in this encounter Additional Health Concerns Infection Onset Date Last Indicated Resolved Time MRSA 10/04/2022 02/06/2023 05/22/2023 9:05 AM CDT documented as of this encounter Care Teams Cafeteria Cashier Relationship Specialty Start Date End Date Gregoria Carver, [facility] [address] [place] [address] PCP - General Physician Skin Therapist 02/22/21 Genaro Joseph DPM Consulting Physician Podiatry 10/19/15 Luis E Trent MD #[address] [address] Consulting Physician Endocrinology 03/31/20 documented as of this encounter
--- OUTSIDE RECORDS SUMMARY | 2024-09-20 11:42 | XMS_ITS | Encounter Summary ---
Author Organization [facility] Address [address] [place] [address] Phone Care Team Providers Care Rn Wound Care Name Role Phone Genaro Joseph DPM Unavailable [phone] Luis E Trent MD Unavailable Gregoria Carver PAC Primary Care Pro vider Reason for Visit * Reason Onset Date Comments Advice Only 06/18/2024 Encounter Details Date Type Department Care Team (Late st Contact Info) Description 06/18/2024 [facility] [address] [place] [address] Gregoria Carver, PAC [address] [place] [address] Advice Only Social History Tobacco Use Types Packs/Day Years Used Date Smoking Tobacco: Former Cigarettes Q uit: 06/16/2021 Cigars Passive Smoke Exposure: Past Smokeless Tobacco: Never Alcohol Use Standard Drinks/Week Comments Not Currently 0 (1 standard drink = 0.6 oz pure alcohol) beer and wine coolers occaisionally. [facility] Utilities Answer Date Recorded In the past 12 months has [employer], gas, oil, or water company threatened to [...] declined 05/29/2024 How often do you attend advent or restorationism serv ices? Patient declined 05/29/2024 Do you belong to any clubs o r organizations such as advent groups, unions, fraternal or athletic groups, or [...] Total Score - Questions 1-9 0 05/11 [facility] of Occupat ional Health - Occupational Stress Questionnaire Answer Date Recorded [...] place to sleep or slept in a care home (including now)? Patient unable to answer 06/07/2023 [...] any time in the past 12 m [facility], were you homeless or living in a care home (including now)? Yes 05/29/2024 Education Answer Date [...] encounter Miscellaneous Notes * Telephone Encounter - Kermit Fonseca - 06/18/2024 2:49 PM CDT Jennifer is calling in regards to stating that Luis has been experiencing a cough and is calling to inform and to see if patient could be subscribed a medication or needs to be seen . Please call Jennifer [phone] regarding information. documented in this encounter Plan of Treatment Upcoming Encounters Date Type Department Care Team (Late st Contact Info) Description 10/14/2024 11:30 AM CDT Office Visit [facility] [address] [place] [address] Billy Hubbard MD #1 [place] [address] Discharge Disposition: Discharged to home or Selfcare 11/27/2024 11:00 AM CDT Office Visit [facility] - Endocrinology [facility] #2 [place] [phone] Luis E Trent MD #[address] [address] 12/04/2024 2:00 PM CDT Office Visit [facility] - Internal Medicine - [place] [address] [place] [address] Gregoria Carver, PAC [address] [place] [address] documented as of this encounter Visit Diagnoses Not on filedocumented in this encounter Additional Health Concerns Assessment Noted Time PHQ-9 Depression Total Score: 0 05/26/19 23 1:00 PM CDT documented as of this encounter Care Teams Rn Wound Care Relationship Specialty Start Date End Date Gregoria Carver, PAC [address] [place] [address] PCP - General Physician Flanger 02/22/21 Genaro Joseph DPM Consulting Physician Podiatry 10/19/15 Luis E Trent MD #2 [facility] [address] [address] Consulting Physician Endocrinology 03/31/20 documented as of this encounter
--- OUTSIDE RECORDS SUMMARY | 2024-09-20 11:42 | XMS_ITS | Encounter Summary ---
Author Organization [facility] Address [address] [place] [address] Phone Care Team Providers Care Advertising Assistant Manager Name Role Phone Genaro Joseph DPM Unavailable [phone] Luis E Trent MD Unavailable Gregoria Carver PAC Primary Care Pro vider Reason for Visit * Reason Comments Medication Refill Encounter Details Date Type Department Care Team (Late st Contact Info) Description 07/11/2023 Refill [facility] - Internal Medicine - [place] [address] [place] [address] Gregoria Carver, PAC [address] [facility] [address] Medication Refill Social History Tobacco Use Types Packs/Day Years Used Date Smoking Tobacco: Every Day Cigarettes Last attempted to quit: 06/16/2021 Cigars Passive Smoke Exposure: Current Smokeless Tobacco: Never Alcohol Use Standard Drinks/Week Comments Not Currently 0 (1 standard drink = 0.6 oz pure alcohol) beer and wine coolers occaisionally. [facility] Utilities Answer Date Recorded In the past 12 months has [employer], gas, oil, or water company threatened to [...] How often do you attend chur or anabaptism services? Patient unable to answer 06/07/2023 Do you belong to any clubs o r organizations such as gnosticism groups, unions, fraternal or athletic groups, or [...] place to sleep or slept in a [facility] (including now)? Patient unable to answer 06/07/2023 [...] Telephone Encounter - Sherin Sierra RN - 07/11/2023 1:47 PM CDT Medication failed the protocol, provider to review and approve the medication order if appropriate. Requested Prescriptions Pending Prescriptions Disp Refills atorvastatin (LIPITOR) 40 MG Tablet [Pharmacy Med Name: Atorvastatin Calcium 40MG TABS] 28 Tablet 0 Sig: TAKE 1 TABLET BY MOUTH EVERY EVENING Hmg CoA Reductase Inhibitors Protocol Failed - 07/11/2023 8:24 AM Failed - Lipid panel in past [...] Type Provider Dept 06/07/23 Office Visit Gregoria Carvre, PAC [facility] [place] 02/28/23 Office Visit Gregoria Carver, PAC [facility] 01/31/23 Office Visit Gregoria Carver, PAC [facility] 10/03/22 Office Visit Gregoria Carver, PAC [facility] [place] 09/19/22 Office Visit Gregoria Carver, PAC [facility] [place] Showing recent visits within past 365 days and meeting all other requirements Future Appointments Date Type Provider Dept 08/29/23 Appointment Gregoria Carver, PAC [facility] Showing future appointments within next 90 [...] Description 10/14/2024 11:30 AM CDT Office Visit [facility] 1 [place] [address] Billy Hubbard MD #1 [place] [address] Discharge Disposition: Discharged to home or Selfcare 11/27/2024 11:00 AM CDT Office Visit [facility] - Endocrinology [facility] #[address] [place] [address] Luis E Trent MD [address]2 [place] [facility] [address] [place] [address] 12/04/2024 2:00 PM CDT Office Visit [facility] - Internal Medicine [facility] [address] [place] [address] Gregoria Carver, [facility] [address] [place] [address] documented as of this encounter Visit Diagnoses Not on filedocumented in this encounter Additional Health Concerns Assessment Noted Time PHQ-9 Depression Total Score: 0 05/26/19 23 1:00 PM CDT documented as of this encounter Care Teams Advertising Assistant Manager Relationship Specialty Start Date End Date Gregoria Carver, PAC [address] [place] [address] PCP - General Physician Loss Prevention Detective 02/22/21 Genaro Joseph DPM Consulting Physician Podiatry 10/19/15 Luis E Trent MD [address] [address] Consulting Physician Endocrinology 03/31/20 documented as of this encounter
--- OUTSIDE RECORDS SUMMARY | 2024-09-20 11:42 | XMS_ITS | Encounter Summary ---
Author Organization [facility] Address [address] [place] [address] Phone Care Team Providers Care Circular Stuffer Name Role Phone Genaro Joseph DPM Unavailable [phone] Luis E Trent MD Unavailable Gregoria Carver PAC Primary Care Pro vider Reason for Visit * Reason Comments Medication Refill Encounter Details Date Type Department Care Team (Late st Contact Info) Description 03/23/2022 Refill [facility] Medical Group - Internal Medicine - [place] [address] [place] [phone] Gregoria Carver, PAC [address] [facility] [address] Medication Refill Social History Tobacco Use Types [...] suspected to have Coronavirus/COVID-19? No / Unsure 03/17/2022 10:07 AM PAID SEARCH MANAGER documented as of this encounter Miscellaneous Notes * Telephone Encounter - Sherin Sierra RN - 03/24/2022 10:54 AM CST Medication failed the protocol, provider to review and approve the medication order if appropriate. Requested Prescriptions Pending Prescriptions Disp Refills atorvastatin (LIPITOR) 40 MG Tablet [Pharmacy Med Name: Atorvastatin Calcium 40MG TABS] 28 Tablet 0 Sig: TAKE 1 TABLET BY MOUTH EVERY EVENING Hmg CoA Reductase Inhibitors Protocol Failed - 03/23/2022 4:16 PM Failed - Lipid panel in past 12 [...] Office Visit Gregoria Carver, PAC [facility] [place] 08/04/21 Office Visit Gregoria Carver, PAC [facility] [place] 07/29/21 Office Visit Gregoria Carver, PAC [facility] [place] 07/15/21 Office Visit Gregoria Carver, PAC [facility] [place] 06/17/21 Office Visit Gregoria Carver, PAC [facility] [place] Showing recent visits within past 365 days and meeting all other requirements Future Appointments No visits were found meeting these conditions. Showing future appointments within next 90 days and meeting all other requirements lisinopril (PRINIVIL, ZESTRIL) 40 MG Tablet [Pharmacy Med Name: Lisinopril 40MG TABS] 28 Tablet 0 Sig: TAKE 1 TABLET BY MOUTH DAILY FOR BLOOD PRESSURE KATIE Inhibitors Protocol Passed - 03/23/2022 4:16 PM Passed - Serum potassium on record in past 12 months POTASSIUM Date Value Ref Range Status 07/12/2021 4.4 3.5 - 5.1 mmol/L Final Passed - Blood pressure on record in past 12 months Clinician-entered: BP Readings from Last 3 Encounters: 03/17/22 124/72 02/10/22 118/60 12/30/21 102/64 Patient-entered: No data recorded Passed - Visit with relevant provider in past 12 months or upcoming 90 days Recent Visits Date Type Provider Dept 08/06/21 Office Visit Gregoria Carver, PAC [facility] [place] 08/04/21 Office Visit Gregoria Carver, PAC [facility] [place] 07/29/21 Office Visit Gregoria Carver, PAC [facility] [place] 07/15/21 Office Visit Gregoria Carver, PAC [facility] [place] 06/17/21 Office Visit Gregoria Carver, PAC [facility] [place] Showing recent visits within past 365 days and meeting all other requirements Future Appointments No visits were found meeting these conditions. Showing future appointments within next 90 days and meeting all other requirements Passed - GFR on record in past 12 months GFR, EST. NONAFRICAN Date Value Ref Range Status 07/12/2021 >60 >=60 Final SEARCH MANAGER documented in this encounter Plan of Treatment Upcoming Encounters Date Type Department Care Team (Late st Contact Info) Description 10/14/2024 11:30 AM CDT [facility] [address] [place] [address] Billy Hubbard MD #1 [facility] [place] [address] Discharge Disposition: Discharged to home or Selfcare 11/27/2024 11:00 AM CDT Office Visit [facility] Medical [facility] - Endocrinology [facility] #[address] [place] [address] Luis E Trent MD [facility] [address] 12/04/2024 2:00 PM CDT Office Visit [facility] Internal Medicine [facility] [address] [place] [address] Gregoria Carver, [place] [address] [place] [address] documented as of this encounter Visit Diagnoses Not on filedocumented in this encounter Additional Health Concerns Infection Onset Date Last Indicated Resolved Time MRSA 10/04/2022 02/06/2023 05/22/2023 9:05 AM CDT documented as of this encounter Care Teams Circular Stuffer Relationship Specialty Start Date End Date Gregoria Carver, ANGEL [address] [place] [address] PCP - General Physician Ethylbenzene Converter Operator 02/22/21 Genaro Joseph DPM Consulting Physician Podiatry 10/19/15 Luis E Trent MD #[address] [address] Consulting Physician Endocrinology 03/31/20 documented as of this encounter
--- OUTSIDE RECORDS SUMMARY | 2024-09-20 11:42 | XMS_ITS | Encounter Summary ---
Author Organization [facility] Address [address] [place] [address] Phone Care Team Providers Care Bacteriologist Dairy Name Role Phone Genaro Joseph DPM Unavailable [phone] Luis E Trent MD Unavailable Gregoria Carver PAC Primary Care Pro vider Reason for Visit * Reason Comments Medication Refill Encounter Details Date Type Department Care Team (Late st Contact Info) Description 08/10/2021 Refill [facility] Medical [facility] - Internal Medicine - [place] [address] [place] [phone] Gregoria Carver, PAC [address] [facility] [place] [address] Medication Refill Social History Tobacco Use Types Packs/Day Years Used Date Smoking Tobacco: Former Cigarettes Q uit: 06/16/2021 Cigars Smokeless Tobacco: Never Alcohol Use Standard Drinks/Week Comments Yes 0 (1 standard drink = 0.6 oz [...] suspected to have Coronavirus/COVID-19? No / Unsure 08/06/2021 2:30 PM CDT documented as of this encounter Miscellaneous Notes * Telephone Encounter - Sherin Sierra RN - 08/10/2021 2:55 PM CDT Medication warning Per nursing clinical judgement, provider to review and approve the medication(s) order(s) if appropriate. Requested Prescriptions Pending Prescriptions Disp Refills atorvastatin (LIPITOR) 40 MG Tablet [Pharmacy Med Name: Atorvastatin Calcium 40MG TABS] 28 Tablet 0 Sig: TAKE 1 TABLET BY MOUTH EVERY EVENING Hmg CoA Reductase Inhibitors Protocol Passed - 08/10/2021 1:12 PM Passed - Visit with relevant provider in past 12 months or upcoming 90 days Recent Visits Date Type Provider Dept 08/06/21 Office Visit Gregoria Carver, PAC [facility] [place] 08/04/21 Office Visit Gregoria Carver, PAC [facility] [place] 07/29/21 Office Visit Gregoria Carver PAC [facility] [place] 07/15/21 Office Visit Gregoria Carver PAC [facility] [place] 06/17/21 Office Visit Gregoria Carver PAC [facility] [place] 02/15/21 Office Visit Gregoria Carver PAC [facility] [place] Showing recent visits within past 365 days and meeting all other requirements Future Appointments Date Type Provider Dept 08/11/21 Appointment Gregoria Carver PAC [facility] [place] Showing future appointments within next 90 days [...] Range Status 02/22/2021 111 <130 mg/dL Final lisinopril (PRINIVIL, ZESTRIL) 40 MG Tablet [Pharmacy Med Name: Lisinopril 40MG TABS] 28 Tablet 0 Sig: TAKE 1 TABLET BY MOUTH DAILY FOR BLOOD PRESSURE KATIE Inhibitors Protocol Passed - 08/10/2021 1:12 PM Passed - Serum potassium on record in past 12 months POTASSIUM Date Value Ref Range Status 07/12/2021 4.4 3.5 - 5.1 mmol/L Final Passed - Blood pressure on record in past 12 months Clinician-entered: BP Readings from Last 3 Encounters: 08/06/21 114/68 08/04/21 96/72 07/29/21 100/74 Patient-entered: No data recorded Passed - Visit with relevant provider in past 12 months or upcoming 90 days Recent Visits Date Type Provider Dept 08/06/21 Office Visit Gregoria Carver, PAC [facility] [place] 08/04/21 Office Visit Gregoria Carver, PAC [facility] [place] 07/29/21 Office Visit Gregoria Carver, PAC [facility] [place] 07/15/21 Office Visit Gregoria Carver, PAC [facility] [place] 06/17/21 Office Visit Gregoria Carver, PAC [facility] [place] 02/15/21 Office Visit Gregoria Carver, PAC [facility] [place] Showing recent visits within past 365 days and meeting all other requirements Future Appointments Date Type Provider Dept 08/11/21 Appointment Gregoria Carver PAC [facility] [place] Showing future appointments within next 90 days and meeting all other requirements Passed - GFR on record in past 12 months GFR, EST. NONAFRICAN Date Value Ref Range Status 07/12/2021 >60 >=60 Final documented in this encounter Plan of Treatment Upcoming Encounters Date Type Department Care Team (Late st Contact Info) Description 10/14/2024 11:30 AM CDT [facility] 1 [place] [address] Billy Hubbard MD #1 [place] [address] Discharge Disposition: Discharged to home or Selfcare 11/27/2024 11:00 AM CDT Office Visit [facility] - [facility]ocrin[facility] #2 [place] [address] Luis E Trent MD #[address] [phone] 12/04/2024 2:00 PM CDT Office Visit [facility] - [facility] - [place] [address] [place] [address] Gregoria Carver, [facility] [address] [place] [address] documented as of this encounter Visit Diagnoses Not on filedocumented in this encounter Additional Health Concerns Infection Onset Date Last Indicated Resolved Time MRSA 10/04/2022 02/06/2023 05/22/2023 9:05 AM CDT documented as of this encounter Care Teams Bacteriologist Dairy Relationship Specialty Start Date End Date Gregoria Carver, PAC [address] [place] [address] PCP - General Physician Office Manager Executive Assistant 02/22/21 Genaro Joseph DPM Consulting Physician Podiatry 10/19/15 Luis E Trent MD #[address] [address] Consulting Physician Endocrinology 03/31/20 documented as of this encounter
--- OUTSIDE RECORDS SUMMARY | 2024-09-20 11:42 | XMS_ITS | Encounter Summary ---
Author Organization [facility] Address [address] [place] [address] Phone Care Team Providers Care Custom Tailor Apprentice Name Role Phone Genaro Joseph DPM Unavailable [phone] Luis E Trent MD Unavailable Gregoria Carver PAC Primary Care Pro vider Reason for Visit * Reason Comments Medication Refill Encounter Details Date Type Department Care Team (Late st Contact Info) Description 05/24/2022 Refill [facility] - Internal Medicine - [place] [address] [place] [address] Gregoria Carver, PAC [address] [facility] [place] [address] Medication Refill Social History Tobacco Use Types Packs/Day Years Used Date Smoking Tobacco: Former Cigarettes Q uit: 06/16/2021 Cigars Smokeless Tobacco: Never Alcohol Use Standard Drinks/Week Comments Not Currently 0 (1 standard drink = 0.6 oz pure alcohol) beer and wine coolers occaisionally. PHQ-2 Answer Date Recorded Total Score - Questions 1-9 0 05/11 Sexually Active Control Partners Comments Not Currently [...] suspected to have Coronavirus/COVID-19? No / Unsure 05/25/2022 12:28 PM CDT documented as of this encounter Functional Status * Question Answer Date of Assessment Author Little interest or pleasure in doing things Not at all 05/25/2022 1:00 PM CDT Brandy Mcrae CMA Feeling down, depressed, or hopeless Not at all 05/25/2022 1:00 PM CDT Brandy Mcrae CMA * Over the past 2 weeks, how often have you been bothered by any of the following problems? Question Answer Date of Assessment Author Patient Health Questionnaire -2 Score 0 05/25/2022 1:00 PM CDT Brandy Mcrae CMA documented as of this encounter Miscellaneous Notes * Telephone Encounter - Sherin Sierra RN - 05/24/2022 9:18 AM CDT Medication failed the protocol, provider to review and approve the medication order if appropriate. Requested Prescriptions Pending Prescriptions Disp Refills lisinopril (PRINIVIL, ZESTRIL) 40 MG Tablet [Pharmacy Med Name: Lisinopril 40MG TABS] 28 Tablet 0 Sig: TAKE 1 TABLET BY MOUTH DAILY FOR BLOOD PRESSURE KATIE Inhibitors Protocol Passed - 05/24/2022 8:16 AM Passed - Serum potassium on record in past 12 months POTASSIUM Date Value Ref Range Status 05/10/2022 4.5 3.5 - 5.1 mmol/L Final Passed - Blood pressure on record in past 12 months Clinician-entered: BP Readings from Last 3 Encounters: 05/10/22 135/82 04/19/22 124/74 03/17/22 124/72 Patient-entered: No data recorded Passed - Visit with relevant provider in past 12 months or upcoming 90 days Recent Visits Date Type Provider Dept 08/06/21 Office Visit Gregoria Carver, ANGEL [facility] 08/04/21 Office Visit Gregoria Carver, ANGEL [facility] 07/29/21 Office Visit Gregoria Carver, PAC [facility] [place] 07/15/21 Office Visit Gregoria Carver, PAC [facility] [place] 06/17/21 Office Visit Gregoria Carver, PAC [facility] [place] Showing recent visits within past 365 days and meeting all other requirements Future Appointments Date Type Provider Dept 05/25/22 Appointment Gregoria Carver, ANGEL [facility] [place] Showing future appointments within next 90 days and meeting all other requirements Passed - GFR on record in past 12 months GFR, EST. NONAFRICAN Date Value Ref Range Status 05/10/2022 >60 >=60 Final atorvastatin (LIPITOR) 40 MG Tablet [Pharmacy Med Name: Atorvastatin Calcium 40MG TABS] 28 Tablet 0 Sig: TAKE 1 TABLET BY MOUTH EVERY EVENING Hmg CoA Reductase Inhibitors Protocol Failed - 05/24/2022 8:16 AM Failed - Lipid panel in past [...] Office Visit Gregoria Carver, PAC [facility] [place] 08/04/21 Office Visit Gregoria Carver, PAC [facility] [place] 07/29/21 Office Visit Gregoria Carver, PAC [facility] [place] 07/15/21 Office Visit Gregoria Carver, PAC [facility] [place] 06/17/21 Office Visit Gregoria Carver, ANGEL [facility] [place] Showing recent visits within past 365 days and meeting all other requirements Future Appointments Date Type Provider Dept 05/25/22 Appointment Gregoria Carver PAC [facility] [place] Showing future appointments within next 90 days and meeting all other requirements documented in this encounter Plan of Treatment Upcoming Encounters Date Type Department Care Team (Late st Contact Info) Description 10/14/2024 11:30 AM CDT Office Visit [facility] 1 [place] [address] Billy Hubbard MD #1 [place] [address] Discharge Disposition: Discharged to home or Selfcare 11/27/2024 11:00 AM CDT Office Visit [facility] - [facility]ocrinology [facility] #2 [place] [address] Luis E Trent MD #[address] [address] 12/04/2024 2:00 PM CDT Office Visit [facility] - [place] [address] [place] [phone] Gregoria Carver PAC [address] [place] [address] documented as of this encounter Visit Diagnoses Not on filedocumented in this encounter Additional Health Concerns Infection Onset Date Last Indicated Resolved Time MRSA 10/04/2022 02/06/2023 05/22/2023 9:05 AM CDT documented as of this encounter Care Teams Custom Tailor Apprentice Relationship Specialty Start Date End Date Gregoria Carver PAC [address] [place] [address] PCP - General Physician Breaking Machine Operator 02/22/21 Genaro Joseph DPM Consulting Physician Podiatry 10/19/15 Luis E Trent MD #[address] [address] Consulting Physician Endocrinology 03/31/20 documented as of this encounter
[2024-09-20 12:07] LABS: Hematocrit 41.0 % (42.0-52.0); Hemoglobin 13.4 g/dL (14.0-18.0); Immature Granulocyte Percent A 0.7 % (0-0.5); Lymphocytes Absolute Auto 1.59 K/mm3 (0.9-3.2); Mean Corpuscular HGB Conc 32.7 g/dl (32-36); Mean Corpuscular Hemoglobin 28.5 pg (26-34); Mean Corpuscular Volume 87.2 fl (80-100); Nucleated Red Blood Cells Absolute Auto 0.000 K/mm3 (0.0-0.012); Nucleated Red Blood Cells Perc 0.0 % (0.0-0.2); Platelet Count Result 176 k/mm3 (150-375); Red Blood Count 4.70 M/mm3 (4.6-6.20); White Blood Count 5.7 K/mm3 (4.5-10.0)
[2024-09-20 12:11] LABS: Add Urine Microscopic? YES; Appearance Urine Clear (Clear); Glucose Urine UA Trace mg/dL (Negative); Leukocyte Esterase Ur Negative LEU/UL (Negative); Nitrate Urine Negative (Negative); Non Pathogenic Casts 0-2; Specific Grav Ur 1.035 (1.001-1.035)
[2024-09-20 12:19] LABS: Alanine Aminotransferase 26 U/L (6-50); Albumin Level 4.7 g/dL (3.5-5.1); Alkaline Phosphatase 50 U/L (38-126); Anion Gap 16 mmol/L (4-12); Aspartate Amino Transferase 27 U/L (17-59); Bilirubin,Total 0.4 mg/dL (0.2-1.3); Blood Urea Nitrogen 24 mg/dL (9-20); Calcium 9.7 mg/dL (8.4-10.2); Carbon Dioxide 18 mmol/L (22-30); Chloride 105 mmol/L (98-107); Estimated Glomerular Filt Rate > 60; Glucose 175 mg/dL (65-110); Potassium 4.3 mmol/L (3.4-5.0); Sodium 139 mmol/L (137-145); Total Protein 8.5 g/dL (6.3-8.2)
[2024-09-20 12:34] LABS: Cannabinoid Screen Urine Negative (Negative)
--- NOTE | 2024-09-20 12:50 | ED.GENADULT ---
HPI - General Adult General Chief complaint: Medical Clearance Stated complaint: needs placement Time Seen by Provider: 09/20/24 11:23 History of Present Illness HPI narrative: Patient is a 44-year-old male who presents ER for evaluation/medical clearance so he can be placed in a care center. Patient has diabetes and requires refrigerated the medication. He has run out of money and can no longer stay in a hotel. He has his social service coordinator here with him. He is unable stay with his sister nor his mother. Patient seems to have a low IQ as he is bad and answering questions but is oriented x4. There is no documentation of the mental delay. Patient has no medical complaints this time denies any pain. Patient has a social service coordinator here with him who is part of [facility] and is helping to this gentleman housed. Related Data Home Medications ?Medication ?Instructions ?Recorded ?Confirmed ?Last Taken ?Type atorvastatin 40 mg tablet mg 09/20/24 Unknown History divalproex 250 mg tablet,delayed mg PO 09/20/24 Unknown History release lurasidone 120 mg tablet mg 09/20/24 Unknown History metformin 1,000 mg tablet mg 09/20/24 Unknown History Allergies Allergy/AdvReac Type Severity Reaction Status Date / Time No Known Allergies Allergy Verified 09/20/24 11:06 Review of Systems Review of Systems: All systems reviewed & are unremarkable except as noted in HPI and below Constitutional: Constitutional: Reports no additional constitutional complaints Cardiovascular: Cardiovascular: Reports no additional cardiovascular complaints Respiratory: Respiratory: Reports no additional respiratory complaints Gastrointestinal: Gastrointestinal: Reports no additional gastrointestinal complaints PMFSH Social History Social History Substance use type: does not use Exam Narrative: GENERAL: Well-appearing, well-nourished, and in no acute distress. HEAD: Normocephalic, atraumatic. ENT: Mucous membranes moist. NECK: Supple. CHEST: Clear to auscultation. No respiratory distress. HEART: Regular rate and rhythm. Normal peripheral pulses. EXTREMITIES: Normal range of motion. No edema. SKIN: Warm, dry, no rash. NEURO: Alert and oriented x3. PSYCH: Normal mood and affect. Course Course Emergency Course: Patient resting comfortably and appears medically stable. Labs are unremarkable. Still waiting alcohol level. Care coordination is involved helping to arrange care at [facility] which was the request of the social service coordinator. 1739: Patient does not meet the requirements to be emergently placed in a custodial. Patient's social service coordinator can continue to work on getting him into a care home house. He will be discharged. Vital Signs Vital signs: Vital Signs Temperature 98 F 09/20/24 11:01 Pulse Rate 103 H 09/20/24 11:01 Respiratory Rate 16 09/20/24 11:01 Blood Pressure 117/75 09/20/24 11:01 Pulse Oximetry 100 09/20/24 11:01 Oxygen Delivery Room Air 09/20/24 11:01 Temperature 98 F 09/20/24 11:01 Pulse Rate 103 H 09/20/24 11:01 Respiratory Rate 16 09/20/24 11:01 Blood Pressure 117/75 09/20/24 11:01 Pulse Oximetry 100 09/20/24 11:01 Oxygen Delivery Room Air 09/20/24 11:01 Medical Decision Making Vital Signs Vital Signs: Vital Signs Temperature 98 F 09/20/24 11:01 Pulse Rate 103 H 09/20/24 11:01 Respiratory Rate 16 09/20/24 11:01 Blood Pressure 117/75 09/20/24 11:01 Pulse Oximetry 100 09/20/24 11:01 Oxygen Delivery Room Air 09/20/24 11:01 Temperature 98 F 09/20/24 11:01 Pulse Rate 103 H 09/20/24 11:01 Respiratory Rate 16 09/20/24 11:01 Blood Pressure 117/75 09/20/24 11:01 Pulse Oximetry 100 09/20/24 11:01 Oxygen Delivery Room Air 09/20/24 11:01 Lab Data 09/20/24 11:51 09/20/24 11:51 Labs: Lab Results 09/20/24 09/20/24 Range/Units 11:51 11:52 WBC 5.7 (4.5-10.0) K/mm3 RBC 4.70 (4.6-6.20) M/mm3 Hgb 13.4 L (14.0-18.0) g/dL Hct 41.0 L (42.0-52.0) % MCV 87.2 (80-100) fl MCH 28.5 (26-34) pg MCHC 32.7 (32-36) g/dl RDW 13.0 (11.5-14.5) % Plt Count 176 (150-375) k/mm3 MPV 11.1 H (7.4-10.4) fl Immature Gran % (Auto) 0.7 H (0-0.5) % Neut % (Auto) 57.1 (45.5-73.1) % Lymph % (Auto) 28.0 (18.3-44.2) % [place] % (Auto) 11.8 H (2.6-8.5) % Eos % (Auto) 1.9 (0-4.4) % Baso % (Auto) 0.5 (0.2-1.2) % Lymph # (Auto) 1.59 (0.9-3.2) K/mm3 [place] # (Auto) 0.7 H (0.1-0.6) K/mm3 Eos # (Auto) 0.1 (0-0.3) K/mm3 Baso # (Auto) 0.0 (0.0-0.1) K/mm3 Abs Immat Gran (auto) 0.04 H (0.00-0.031) K/mm3 Absolute Neuts (auto) 3.2 (1.3-6.7) K/mm3 Absolute Nucleated RBC 0.000 (0.0-0.012) K/mm3 Nucleated RBC % 0.0 (0.0-0.2) % Sodium 139 (137-145) mmol/L Potassium 4.3 (3.4-5.0) mmol/L Chloride 105 (98-107) mmol/L Carbon Dioxide 18 L (22-30) mmol/L Anion Gap 16 H (4-12) mmol/L BUN 24 H (9-20) mg/dL Creatinine 0.99 (0.7-1.3) mg/dL Estim Creat Clear Calc Not Reportable Estimated GFR > 60 (59 - ) Glucose 175 H (65-110) mg/dL POC Capillary Glucose 173 H (65-105) mg/dl Calcium 9.7 (8.4-10.2) mg/dL Total Bilirubin 0.4 (0.2-1.3) mg/dL AST 27 (17-59) U/L ALT 26 (6-50) U/L Alkaline Phosphatase 50 (38-126) U/L Total Protein 8.5 H (6.3-8.2) g/dL Albumin 4.7 (3.5-5.1) g/dL Urine Color Yellow (Yellow) Urine Appearance Clear (Clear) Urine pH 5.5 (5.0-9.0) Ur Specific [place] 1.035 (1.001-1.035) Urine Protein 1+ H (Negative) mg/dL Urine Glucose (UA) Trace H (Negative) mg/dL Urine Ketones 1+ H (Negative) mg/dL Ur Blood (Man) Negative (Negative) Urine Nitrate Negative (Negative) Urine Bilirubin Negative (Negative) Urine Urobilinogen 1.0 (<2.0) mg/dL Leukocyte Esterase Rfl Negative (Negative) NORMA/UL Urine RBC 0-2 (0-2) /hpf Urine WBC 0-5 (0-3) /hpf Ur Squamous Epith Cells None seen (Few) /hpf Urine Bacteria None seen /hpf Urine Casts 0-2 Salicylates < 1.0 L (2-20) mg/dL Urine Opiates Screen Negative (Negative) Urine Methadone Screen Negative (Negative) Acetaminophen < 10 L (10-30) ug/mL Ur Barbiturates Screen Negative (Negative) Ur Phencyclidine Scrn Negative (Negative) Ur Amphetamine Screen Negative (Negative) U Benzodiazepines Scrn Negative (Negative) Urine Cocaine Screen Negative (Negative) U Cannabinoids Screen Negative (Negative) Ethyl Alcohol < 10 (<10) mg/dL Discharge Plan Discharge Clinical Impression: Normal exam Patient Disposition: Home Condition: Stable Instructions: Normal Exam (ED) Additional Instructions: This continue work with her social service coordinator about getting into a care home house. Return the ER if you have chest pain, you develop fever 100.4? F, you cannot keep down food water, or you have additional concerns. Patient Language: Citizen Of [place] Prescriptions: No Action atorvastatin 40 mg tablet divalproex 250 mg tablet,delayed release (DR/EC) PO metformin 1,000 mg tablet lurasidone 120 mg tablet Follow-up/Referrals: Adam Wilson MD [Primary Care Provider] - 1 Week
[2024-09-20 13:08] LABS: Acetaminophen < 10 ug/mL (10-30); Salicylate < 1.0 mg/dL (2-20)
[2024-09-20 17:40] VITALS: BP 136/70; PULSE 70; RESP 16; O2SAT 97
--- NOTE | 2024-09-20 18:19 | PCCCNOTE ---
1300: Called to the ED to discuss [facility]iary placement. Pt has a case-worker with him from [facility]. She said pt was supposed to get a medical clearance to go to [facility] [place]. I called Karli at [facility], who knew nothing about this. Referral was sent to her, PASSR was completed. Passr was sent to level 2. Pt had one done yesterday through the [facility] that also went to level 2, but was finished for approval. Awaiting return call from Karli. 1645: Karli called back to say that they could not accept him. Avila Thomas came to the ED to do the level 2 assessment from my PASSR today. She said pt. can not be placed in a nursing facility until this is finalized. Pt called his mother to see if he could stay there for the weekend, but she said no. She also could not pay for him a hotel for the weekend. I attempted to call [facility] in [place] ([phone]) [facility], but they could not do anything until Monday. The case-worker who was with him was going to take him back to [place] near [facility], but pt. would probably be homeless for the weekend.
== END 2024-09-20 17:40 | disposition home or self-care (01) ==
PROVIDERS: Emergency Provider Emergency Medicine; PCP Family Medicine
DX: Z02.2 Encounter for examination for admission to residential institution (principal); E11.9 Type 2 diabetes mellitus without complications; Z79.84 Long term (current) use of oral hypoglycemic drugs; Z79.899 Other long term (current) drug therapy
CPT/HCPCS: 36415; 71046; 80053; 80143; 80179; 80307; 81001; 82077; 82948; 85025; 99283

== ENCOUNTER 2024-10-01 20:55 | Emergency (ER) | payer MEDICARE, MEDICAID, SELFPAY ==
--- OUTSIDE RECORDS SUMMARY | 2024-10-01 20:58 | XMS_ITS | Encounter Summary ---
Author Organization [facility] Address [address] [place] [address] Phone Care Team Providers Care High Speed Printer Operator Name Role Phone Genaro Joseph DPM Unavailable Luis E Trent MD Unavailable Gregoria Carver PAC Primary Care Pro vider Reason for Visit * Reason Comments Medication Refill Encounter Details Date Type Department Care Team (Late st Contact Info) Description 12/07/2021 Refill [facility] [place] [address] Luis E Trent MD #[address] [address] Medication Refill Social History Tobacco [...] Med Name: BD UF SHORT PEN NEEDLE [id number] Sig: USE WITH INSULIN FOUR TIMES A DAY, MUST MAKE APPT Next appt: 12/30/2021 documented in this encounter Plan of Treatment Upcoming Encounters Date Type Department Care Team (Late st Contact Info) Description 10/14/2024 11:30 AM CDT Office Visit [facility] [address] [place] [address] Billy Hubbard MD [address] [place] [address] Discharge Disposition: Discharged to home or Selfcare 11/27/2024 11:00 AM CDT Office Visit [facility] - Endocrinology [facility] [place] [address] Luis E Trent MD #[address] [address] 12/04/2024 2:00 PM CDT Office Visit [facility] Medical Group - Internal Medicine - [place] [address] [place] [phone] Gregoria Carver, [facility] [address] [place] [address] documented as of this encounter Visit Diagnoses Diagnosis Type 2 diabetes mellitus with diabetic polyneuropathy, with long-term current use of insulin (HCC) documented in this encounter Additional Health Concerns Infection Onset Date Last Indicated Resolved Time 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
--- OUTSIDE RECORDS SUMMARY | 2024-10-01 20:58 | XMS_ITS | Encounter Summary ---
Author Organization [facility] Address [address] [place] [address] Phone Care Team Providers Care Mixing Tank Operator Name Role Phone Genaro Joseph DPM Unavailable [phone] Luis E Trent MD Unavailable Gregoria Carver PAC Primary Care Pro vider Reason for Visit * Reason Comments Medication Refill Encounter Details Date Type Department Care Team (Late st Contact Info) Description 04/25/2022 Refill [facility] Group - Internal Medicine - [place] [address] [place] [phone] Gregoria Carver, PAC [address] [facility] [place] [address] Medication Refill Social History Tobacco Use Types [...] Coronavirus/COVID-19? No / Unsure 04/19/2022 2:01 PM SCRAP DROP CRANE OPERATOR documented as of this encounter Miscellaneous [...] Office Visit Gregoria Carver, PAC [facility] 08/04/21 Office Visit Gregoria Carver, PAC [facility] 07/29/21 Office Visit Gregoria Carver, PAC [facility] 07/15/21 Office Visit Gregoria Carver, PAC [facility] 06/17/21 Office Visit Gregoria Carver, PAC [facility] [place] Showing recent visits within past 365 days and meeting all other requirements Future Appointments Date Type Provider Dept 05/11/22 Appointment Gregoria Carver, PAC [facility] Showing future appointments within next 90 days [...] Office Visit Gregoria Carver, PAC [facility] [place] 08/04/21 Office Visit Gregoria Carver, PAC [facility] [place] 07/29/21 Office Visit Gregoria Carver, PAC [facility] [place] 07/15/21 Office Visit Gregoria Carver, PAC [facility] [place] 06/17/21 Office Visit Gregoria Carver PAC [facility] [place] Showing recent visits within past 365 days and meeting all other requirements Future Appointments Date Type Provider Dept 05/11/22 Appointment Gregoria Carver PAC [facility] [place] Showing future appointments within next 90 days and meeting all other requirements Passed - GFR on record in past 12 months GFR, EST. NONAFRICAN Date Value Ref Range Status 04/19/2022 >60 >=60 Final P DROP CRANE OPERATOR documented in this encounter Plan of Treatment Upcoming Encounters Date Type Department Care Team (Late st Contact Info) Description 10/14/2024 11:30 AM CDT Office Visit [facility] 1 [place] [address] Billy Hubbard MD #[address] [place] [address] Discharge Disposition: Discharged to home or Selfcare 11/27/2024 11:00 AM CDT [facility]2 [place] [address] Luis E Trent MD #[address] [address] 12/04/2024 2:00 PM CDT Office Visit [facility] Medical Group - Internal Medicine [facility] [address] [place] [phone] Gregoria Carver, [facility] [address] [place] [address] documented as of this encounter Visit Diagnoses Not on filedocumented in this encounter Additional Health Concerns Infection Onset Date Last Indicated Resolved Time MRSA 10/04/2022 02/06/2023 05/22/2023 9:05 AM CDT documented as of this encounter Care Teams Mixing Tank Operator Relationship Specialty Start Date End Date Gregoria Carver, [facility] [address] [place] [address] PCP - General Physician Vba Programmer 02/22/21 Genaro Joseph DPM Consulting Physician Podiatry 10/19/15 Luis E Trent MD #[address] [address] Consulting Physician Endocrinology 03/31/20 documented as of this encounter
--- OUTSIDE RECORDS SUMMARY | 2024-10-01 20:58 | XMS_ITS | Encounter Summary ---
Author Organization [facility] Address [address] [place] [address] Phone Care Team Providers Care Hotbed Transfer Operator Name Role Phone Genaro Joseph DPM Unavailable [phone] Luis E Trent MD Unavailable Gregoria Carver PAC Primary Care Pro vider Reason for Visit * Reason Comments Medication Refill Encounter Details Date Type Department Care Team (Late st Contact Info) Description 05/16/2023 Refill [facility] Medical Group - Internal Medicine - [place] [address] [place] [address] Gregoria Carver, PAC [address] [facility] [address] Medication Refill Social History Tobacco Use Types Packs/Day Years Used Date Smoking Tobacco: Former Cigarettes Q uit: 06/16/2021 Cigars Passive Smoke Exposure: Current Smokeless Tobacco: Never Alcohol Use Standard Drinks/Week Comments Not Currently 0 (1 standard drink = 0.6 oz pure alcohol) beer and wine coolers occaisionally. [facility] Utilities Answer Date Recorded In the past 12 months has [employer], gas, oil, or water [employer] threatened to shut off services in your [...] place to sleep or slept in a mcc (including now)? No 05/19/2023 Education Answer Date [...] 02/28/23 Office Visit Gregoria Carver, PAC [facility] 01/31/23 Office Visit Gregoria Carver, PAC [facility] 10/03/22 Office Visit Gregoria Carver, PAC [facility] [place] 09/19/22 Office Visit Gregoria Carver, PAC [facility] [place] 05/25/22 Office Visit Gregoria Carver PAC [facility] [place] Showing recent visits within past 365 days [...] 02/28/23 Office Visit Gregoria Carver, PAC [facility] 01/31/23 Office Visit Gregoria Carver, PAC [facility] 10/03/22 Office Visit Gregoria Carver, PAC [facility] [place] 09/19/22 Office Visit Gregoria Carver, PAC [facility] [place] 05/25/22 Office Visit Gregoria Carver, PAC [facility] [place] Showing recent visits within past 365 days [...] Value Ref Range Status 05/31/2022 No Final O DIRECTOR documented in this encounter Plan of Treatment Upcoming Encounters Date Type Department Care Team (Late st Contact Info) Description 10/14/2024 11:30 AM CDT [facility] 1 [place] [phone] Billy Hubbard MD #[address] [place] [address] Discharge Disposition: Discharged to home or Selfcare 11/27/2024 11:00 AM CDT Office Visit [facility] Medical Group - Endocrinology [facility] #2 [place] [phone] Luis E Trent MD #[address] [address] 12/04/2024 2:00 PM CDT Office Visit [facility] - Internal Medicine - [place] [address] [place] [phone] Gregoria Carver, PAC [address] [place] [address] documented as of this encounter Visit Diagnoses Not on filedocumented in this encounter Additional Health Concerns Infection Onset Date Last Indicated Resolved Time MRSA 10/04/2022 02/06/2023 05/22/2023 9:05 AM CDT Assessment Noted Time PHQ-9 Depression Total Score: 0 05/26/19 1:00 PM CDT documented as of this encounter Care Teams Hotbed Transfer Operator Relationship Specialty Start Date End Date Gregoria Carver, PAC [address] [place] [address] PCP - General Physician Cobol Developer 02/22/21 Genaro Joseph DPM Consulting Physician Podiatry 10/19/15 Luis E Trent MD #[address] [address] Consulting Physician Endocrinology 03/31/20 documented as of this encounter
--- OUTSIDE RECORDS SUMMARY | 2024-10-01 20:58 | XMS_ITS | Encounter Summary ---
Author Organization [facility] Address [address] [place] [address] Phone Care Team Providers Care Research And Evaluation Analyst Name Role Phone Genaro Joseph DPM Unavailable [phone] Luis E Trent MD Unavailable Gregoria Carver PAC Primary Care Pro vider Reason for Visit * Reason Onset Date Comments Advice Only 06/18/2024 Encounter Details Date Type Department Care Team (Late st Contact Info) Description 06/18/2024 [facility] [address] [place] [address] Gregoria Carver, PAC [address] [place] [address] Advice Only Social History Tobacco Use Types Packs/Day Years Used Date Smoking Tobacco: Former Cigarettes Q uit: 06/16/2021 Cigars Passive Smoke Exposure: Past Smokeless Tobacco: Never Alcohol Use Standard Drinks/Week Comments Not Currently 0 (1 standard drink = 0.6 oz pure alcohol) beer and wine coolers occaisionally. [facility] Utilities Answer Date Recorded In the past 12 months has [employer], gas, oil, or water company threatened to [...] declined 05/29/2024 How often do you attend synagogue or jewish serv ices? Patient declined 05/29/2024 Do you belong to any clubs o r organizations such as synagogue groups, unions, fraternal or athletic groups, or [...] Total Score - Questions 1-9 0 05/11 [facility] - Occupational Stress [...] place to sleep or slept in a group home (including now)? Patient unable to answer [...] any time in the past 12 m [facility], were you homeless or living in a group home (including now)? Yes 05/29/2024 Education Answer [...] to be seen . Please call Jennifer [phone] regarding information. documented in this encounter Plan of Treatment Upcoming Encounters Date Type Department Care Team (Late st Contact Info) Description 10/14/2024 11:30 AM CDT Office Visit [facility] 1 [place] [address] Billy Hubbard MD #1 [place] [address] Discharge Disposition: Discharged to home or Selfcare 11/27/2024 11:00 AM CDT Office Visit [facility] - Endocrinology [facility] #2 [place] [address] Luis E Trent MD #[address] [address] 12/04/2024 2:00 PM CDT Office Visit [facility] Medical Group - Internal Medicine - [place] [address] [place] [address] Gregoria Carver, PAC [address] [place] [address] documented as of this encounter Visit Diagnoses Not on filedocumented in this encounter Additional Health Concerns Assessment Noted Time PHQ-9 Depression Total Score: 0 05/26/19 23 1:00 PM CDT documented as of this encounter Care Teams Research And Evaluation Analyst Relationship Specialty Start Date End Date Gregoria Carver, PAC [address] [place] [address] PCP - General Physician Subeditor 02/22/21 Genaro Joseph DPM Consulting Physician Podiatry 10/19/15 Luis E Trent MD #2 [facility] [address] [address] Consulting Physician Endocrinology 03/31/20 documented as of this encounter
--- OUTSIDE RECORDS SUMMARY | 2024-10-01 20:58 | XMS_ITS | Encounter Summary ---
Author Organization [facility] Address [address] [place] [address] Phone Care Team Providers Care Grades 1 6 Tutor Name Role Phone Genaro Joseph DPM Unavailable [phone] Luis E Trent MD Unavailable Gregoria Carver PAC Primary Care Pro vider Reason for Visit * Reason Comments Medication Refill Encounter Details Date Type Department Care Team (Late st Contact Info) Description 05/24/[address] [facility] - Internal Medicine - [place] [address] [place] [phone] Gregoria Carver, PAC [address] [facility] [place] [address] Medication Refill Social History Tobacco Use Types [...] 08/06/21 Office Visit Gregoria Carver, ANGEL [facility] 08/04/21 Office Visit Gregoria Carver, ANGEL [facility] 07/29/21 Office Visit Gregoria Carver, PAC [facility] [place] 07/15/21 Office Visit Gregoria Carver, PAC [facility] [place] 06/17/21 Office Visit Gregoria Carver, PAC [facility] [place] Showing recent visits within past 365 days and meeting all other requirements Future Appointments Date Type Provider Dept 05/25/22 Appointment Gregoria Carver, ANGEL [facility] [place] Showing future appointments within next 90 days [...] Office Visit Gregoria Carver, PAC [facility] [place] 08/04/21 Office Visit Gregoria Carver, PAC [facility] [place] 07/29/21 Office Visit Gregoria Carver, PAC [facility] [place] 07/15/21 Office Visit Gregoria Carver, PAC [facility] [place] 06/17/21 Office Visit Gregoria Carver, ANGEL [facility] [place] Showing recent visits within past 365 days and meeting all other requirements Future Appointments Date Type Provider Dept 05/25/22 Appointment Gregoria Carver PAC [facility] [place] Showing future appointments within next 90 days and meeting all other requirements documented in this encounter Plan of Treatment Upcoming Encounters Date Type Department Care Team (Late st Contact Info) Description 10/14/2024 11:30 AM CDT Office Visit [facility] 1 [place] [address] Billy Hubbard MD #1 [place] [address] Discharge Disposition: Discharged to home or Selfcare 11/27/2024 11:00 AM CDT Office [facility] - [facility] #2 [place] [address] Luis E Trent MD #[address] [address] 12/04/2024 2:00 PM CDT [facility] - [place] [address] [place] [phone] Gregoria Carver PAC [address] [place] [address] documented as of this encounter Visit Diagnoses Not on filedocumented in this encounter Additional Health Concerns Infection Onset Date Last Indicated Resolved Time MRSA 10/04/2022 02/06/2023 05/22/2023 9:05 AM CDT documented as of this encounter Care Teams Grades 1 6 Tutor Relationship Specialty Start Date End Date Gregoria Carver PAC [address] [place] [address] PCP - General Physician Emt Driver 02/22/21 Genaro Joseph DPM Consulting Physician Podiatry 10/19/15 Luis E Trent MD #[address] [address] Consulting Physician Endocrinology 03/31/20 documented as of this encounter
--- OUTSIDE RECORDS SUMMARY | 2024-10-01 20:58 | XMS_ITS | Encounter Summary ---
Author Organization [facility] Address [address] [place] [address] Phone Care Team Providers Care Electric Meter Installer Helper Name Role Phone Genaro Joseph DPM Unavailable [phone] Luis E Trent MD Unavailable Gregoria Carver PAC Primary Care Pro vider Reason for Visit * Reason Comments Medication Refill Encounter Details Date Type Department Care Team (Late st Contact Info) Description 03/23/2022 Refill [facility] - Internal Medicine - [place] [address] [place] [phone] Gregoria Carver, PAC [address] [facility] [place] [address] Medication Refill Social History Tobacco Use Types [...] Coronavirus/COVID-19? No / Unsure 03/17/2022 10:07 AM PUNCH PRESS OPERATOR documented as of this encounter Miscellaneous [...] Office Visit Gregoria Carver, PAC [facility] [place] 08/04/21 Office Visit Gregoria Carver, PAC [facility] [place] 07/29/21 Office Visit Gregoria Carver, PAC [facility] [place] 07/15/21 Office Visit Gregoria Carver, PAC [facility] [place] 06/17/21 Office Visit Gregoria Carver, PAC [facility] [place] Showing recent visits within past 365 days [...] Office Visit Gregoria Carver, PAC [facility] [place] 08/04/21 Office Visit Gregoria Carver, PAC [facility] [place] 07/29/21 Office Visit Gregoria Carver, PAC [facility] [place] 07/15/21 Office Visit Gregoria Carver, PAC [facility] [place] 06/17/21 Office Visit Gregoria Carver, PAC [facility] [place] Showing recent visits within past 365 days and meeting all other requirements Future Appointments No visits were found meeting these conditions. Showing future appointments within next 90 days and meeting all other requirements Passed - GFR on record in past 12 months GFR, EST. NONAFRICAN Date Value Ref Range Status 07/12/2021 >60 >=60 Final H PRESS OPERATOR documented in this encounter Plan of Treatment Upcoming Encounters Date Type Department Care Team (Late st Contact Info) Description 10/14/2024 11:30 AM CDT [facility] 1 [place] [address] Billy Hubbard MD #1 [place] [address] Discharge Disposition: Discharged to home or Selfcare 11/27/2024 11:00 AM CDT Office Visit [facility] - Endocrinology [facility] #2 [place] [address] Luis E Trent MD #2 [facility] [address] 12/04/2024 2:00 PM CDT Office Visit [facility] Internal Medicine [facility] [address] [place] [address] Gregoria Carver, ANGEL [address] [place] [address] documented as of this encounter Visit Diagnoses Not on filedocumented in this encounter Additional Health Concerns Infection Onset Date Last Indicated Resolved Time 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
--- OUTSIDE RECORDS SUMMARY | 2024-10-01 20:58 | XMS_ITS | Encounter Summary ---
Author Organization [facility] Address [address] [place] [address] Phone Care Team Providers Care Distribution Clerk Name Role Phone Genaro Joseph DPM Unavailable [phone] Luis E Trent MD Unavailable Gregoria Carver PAC Primary Care Pro vider Reason for Visit * Reason Comments Medication Refill Encounter Details Date Type Department Care Team (Late st Contact Info) Description 07/11/2023 Refill [facility] - Internal Medicine - [place] [address] [place] [address] Gregoria Carver, PAC [address] [facility] [place] [address] Medication Refill Social History Tobacco Use Types Packs/Day Years Used Date Smoking Tobacco: Every Day Cigarettes Last attempted to quit: 06/16/2021 Cigars Passive Smoke Exposure: Current Smokeless Tobacco: Never Alcohol Use Standard Drinks/Week Comments Not Currently 0 (1 standard drink = 0.6 oz pure alcohol) beer and wine coolers occaisionally. [facility] Utilities Answer Date Recorded In the past 12 months has [employer], gas, oil, or water company threatened to [...] How often do you attend chur or advent services? Patient unable to answer 06/07/2023 Do you belong to any clubs o r organizations such as restorationism groups, unions, fraternal or athletic groups, or [...] place to sleep or slept in a detention (including now)? Patient unable to answer 06/07/2023 [...] Office Visit Gregoria Carver, PAC [facility] [place] 02/28/23 Office Visit Gregoria Carver, PAC [facility] 01/31/23 Office Visit Gregoria Carver, PAC [facility] 10/03/22 Office Visit Gregoria Carver, PAC [facility] [place] 09/19/22 Office Visit Gregoria Carver, PAC [facility] [place] Showing recent visits within past 365 days and meeting all other requirements Future Appointments Date Type Provider Dept 08/29/23 Appointment Gregoria Carver, PAC [facility] Showing future appointments within next 90 days [...] Description 10/14/2024 11:30 AM CDT Office Visit [facility] 1 [place] [address] Billy Hubbard MD #1 [place] [address] Discharge Disposition: Discharged to home or Selfcare 11/27/2024 11:00 AM CDT Office Visit [facility] - Endocrinology [facility] #2 [place] [address] Luis E Trent MD #2 [address] [facility] [address] [place] [address] 12/04/2024 2:00 PM CDT Office Visit [facility] Medical [facility] - Internal Medicine [facility] [address] [place] [address] Gregoria Carver, [facility] [address] [place] [address] documented as of this encounter Visit Diagnoses Not on filedocumented in this encounter Additional Health Concerns Assessment Noted Time PHQ-9 Depression Total Score: 0 05/26/19 23 1:00 PM CDT documented as of this encounter Care Teams Distribution Clerk Relationship Specialty Start Date End Date Gregoria Carver, PAC [address] [place] [address] PCP - General Physician Sales Service Rep 02/22/21 Genaro Joseph DPM Consulting Physician Podiatry 10/19/15 Luis E Trent MD [address] [address] Consulting Physician Endocrinology 03/31/20 documented as of this encounter
--- OUTSIDE RECORDS SUMMARY | 2024-10-01 20:58 | XMS_ITS | Encounter Summary ---
Author Organization [facility] Address [address] [place] [address] Phone Care Team Providers Care Helicopter Mechanic Name Role Phone Genaro Joseph DPM Unavailable Luis E Trent MD Unavailable Gregoria Carver PAC Primary Care Pro vider Reason for Visit * Reason Comments Medication Refill Encounter Details Date Type Department Care Team (Late st Contact Info) Description 07/25/2023 Refill [facility] - Endocrinology [facility] #2 [place] [address] Luis E Trent MD #[address] [address] Medication Refill Social History Tobacco Use Types Packs/Day Years Used Date Smoking Tobacco: Every Day Cigarettes Last attempted to quit: 06/16/2021 Cigars Passive Smoke Exposure: Current Smokeless Tobacco: Never Alcohol Use Standard Drinks/Week Comments Not Currently 0 (1 standard drink = 0.6 oz pure alcohol) beer and wine coolers occaisionally. [facility] Utilities Answer Date Recorded In the past 12 months has [email or web address], gas, oil, or water company threatened to [...] often do you attend chur ch or anabaptism services? Patient unable to answer 06/07/2023 Do you belong to any clubs o r organizations such as adventist groups, unions, fraternal or athletic groups, or [...] place to sleep or slept in a usp (including now)? Patient unable to answer 06/07/2023 [...] AM CDT Medication(s) refilled and signed per [facility] Chronic Medication Refill Standing Order for Pediatric and Adult Patients. documented in this encounter Plan of Treatment Upcoming Encounters Date Type Department Care Team (Late st Contact Info) Description 10/14/2024 11:30 AM CDT [facility] 1 [place] [address] Billy Hubbard MD #1 [place] [address] Discharge Disposition: Discharged to home or Selfcare 11/27/2024 11:00 AM CDT [facility] - [place] #2 [place] [address] Luis E Trent MD #[address] [address] 12/04/2024 2:00 PM CDT Office Visit [facility] - Internal Medicine - [place] [address] [place] [address] Gregoria Carver, PAC [address] [place] [address] documented as of this encounter Visit Diagnoses Not on filedocumented in this encounter Additional Health Concerns Assessment Noted Time PHQ-9 Depression Total Score: 0 05/26/19 23 1:00 PM CDT documented as of this encounter Care Teams Helicopter Mechanic Relationship Specialty Start Date End Date Gregoria Carver, PAC [address] [place] [address] PCP - General Physician Substance Abuse Technician 02/22/21 Genaro Joseph DPM Consulting Physician Podiatry 10/19/15 Luis E Trent MD #[address] [address] Consulting Physician Endocrinology 03/31/20 documented as of this encounter
--- OUTSIDE RECORDS SUMMARY | 2024-10-01 20:58 | XMS_ITS | Encounter Summary ---
Author Organization [facility] Address [address] [place] [address] Phone Care Team Providers Care Terrazzo Mechanic Name Role Phone Genaro Joseph DPM Unavailable [phone] Luis E Trent MD Unavailable Gregoria Carver PAC Primary Care Pro vider Reason for Visit * Reason Comments Medication Refill Encounter Details Date Type Department Care Team (Late st Contact Info) Description 08/15/2023 Refill [facility] - Internal Medicine [facility] [address] [place] [address] Tavo Vargas MD [address] [place] [address] Medication Refill Social History Tobacco Use Types Packs/Day Years Used Date Smoking Tobacco: Every Day Cigarettes Last attempted to quit: 06/16/2021 Cigars Passive Smoke Exposure: Current Smokeless Tobacco: Never Alcohol Use Standard Drinks/Week Comments Not Currently 0 (1 standard drink = 0.6 oz pure alcohol) beer and wine coolers occaisionally. [facility] Utilities Answer Date Recorded In the [...] often do you attend chur ch or restorationist services? Patient unable to answer 06/07/2023 Do you belong to any clubs o r organizations such as judaism groups, unions, fraternal or athletic groups, or [...] Office Visit Gregoria Carver, PAC [facility] [place] 02/28/23 Office Visit Gregoria Carver, PAC [facility] 01/31/23 Office Visit Gregoria Carver, PAC [facility] 10/03/22 Office Visit Gregoria Carver, PAC [facility] [place] 09/19/22 Office Visit Gregoria Carver, PAC [facility] [place] Showing recent visits within past 365 days and meeting all other requirements Future Appointments Date Type Provider Dept 08/29/23 Appointment Gregoria Carver, PAC [facility] Showing future appointments within next 90 days [...] Description 10/14/2024 11:30 AM CDT Office Visit [facility] 1 [place] [address] Billy Hubbard MD #1 [place] [address] Discharge Disposition: Discharged to home or Selfcare 11/27/2024 11:00 AM CDT Office Visit [facility] - Endocrinology [facility] #2 [place] [address] Luis E Trent MD #[address] [facility] [address] [place] [address] 12/04/2024 2:00 PM CDT Office Visit [facility] - Internal Medicine [facility] [address] [place] [address] Gregoria Carver, PAC [address] [place] [address] documented as of this encounter Visit Diagnoses Not on filedocumented in this encounter Additional Health Concerns Assessment Noted Time PHQ-9 Depression Total Score: 0 05/26/19 23 1:00 PM CDT documented as of this encounter Care Teams Terrazzo Mechanic Relationship Specialty Start Date End Date Gregoria Carver, PAC [address] [place] [address] PCP - General Physician Foreign Exchange Student Coordinator 02/22/21 Genaro Joseph DPM Consulting Physician Podiatry 10/19/15 Luis E Trent MD #[address] [address] Consulting Physician Endocrinology 03/31/20 documented as of this encounter
--- OUTSIDE RECORDS SUMMARY | 2024-10-01 20:58 | XMS_ITS | Encounter Summary ---
Author Organization [facility] Address [address] [place] [address] Phone Care Team Providers Care Opal Polisher Name Role Phone Genaro Joseph DPM Unavailable [phone] Luis E Trent MD Unavailable Gregoria Carver PAC Primary Care Pro vider Reason for Visit * Reason Comments Medication Refill Encounter Details Date Type Department Care Team (Late st Contact Info) Description 06/13/2023 Refill [facility] - Internal Medicine - [place] [address] [place] [address] Gregoria Carver, PAC [address] [facility] [address] [address] Medication Refill Social History Tobacco Use Types Packs/Day Years Used Date Smoking Tobacco: Every Day Cigarettes Last attempted to quit: 06/16/2021 Cigars Passive Smoke Exposure: Current Smokeless Tobacco: Never Alcohol Use Standard Drinks/Week Comments Not Currently 0 (1 standard drink = 0.6 oz pure alcohol) beer and wine coolers occaisionally. [facility] Utilities Answer Date Recorded In the past 12 months has [employer], gas, oil, or water company threatened to [...] How often do you attend chur or christian services? Patient unable to answer 06/07/2023 Do you belong to any clubs o r organizations such as hindu groups, unions, fraternal or athletic groups, or [...] place to sleep or slept in a longterm (including now)? Patient unable to answer 06/07/2023 [...] Office Visit Gregoria Carver, PAC [facility] [place] 02/28/23 Office Visit Gregoria Carver, PAC [facility] 01/31/23 Office Visit Gregoria Carver, PAC [facility] 10/03/22 Office Visit Gregoria Carver, PAC [facility] [place] 09/19/22 Office Visit Gregoria Carver, PAC [facility] [place] Showing recent visits within past 365 days and meeting all other requirements Future Appointments Date Type Provider Dept 08/29/23 Appointment Gregoria Carver, PAC [facility] Showing future appointments within next 90 days [...] Office Visit Gregoria Carver PAC [facility] [place] 02/28/23 Office Visit Greg[facility] Carver, [facility]/23 Office Visit Gregoria Carver, PAC [facility] 10/03/22 Office Visit Gregoria Carver, PAC [facility] [place] 09/19/22 Office Visit Gregoria Carver, PAC [facility] [place] Showing recent visits within past 365 days and meeting all other requirements Future Appointments Date Type Provider Dept 08/29/23 Appointment Gregoria Carver, PAC [facility] Showing future appointments within next 90 days [...] [facility] 1 [place] [address] Billy Hubbard MD #1 [place] [address] Discharge Disposition: Discharged to home or Selfcare 11/27/2024 11:00 AM CDT Office Visit [facility] - Endocrinology [facility] #2 [place] [address] Luis E Trent MD #[address] [address] 12/04/2024 2:00 PM CDT Office Visit [facility] - Internal Medicine - [place] [address] [place] [address] Gregoria Carver, PAC [address] [place] [address] documented as of this encounter Visit Diagnoses Not on filedocumented in this encounter Additional Health Concerns Assessment Noted Time PHQ-9 Depression Total Score: 0 05/26/19 23 1:00 PM CDT documented as of this encounter Care Teams Opal Polisher Relationship Specialty Start Date End Date Gregoria Carver, PAC [address] [place] [address] PCP - General Physician Quality Control Director 02/22/21 Genaro Joseph DPM Consulting Physician Podiatry 10/19/15 Luis E Trent MD #[address] [address] Consulting Physician Endocrinology 03/31/20 documented as of this encounter
--- OUTSIDE RECORDS SUMMARY | 2024-10-01 20:58 | XMS_ITS | Encounter Summary ---
Author Organization [facility] Address [address] [place] [address] Phone Care Team Providers Care Hoeing Row Boss Name Role Phone Genaro Joseph DPM Unavailable [phone] Luis E Trent MD Unavailable Gregoria Carver PAC Primary Care Pro vider Reason for Visit * Reason Comments Medication Refill Encounter Details Date Type Department Care Team (Late st Contact Info) Description 08/10/2021 Refill [facility] Medical Group - Internal Medicine - [place] [address] [place] [address] Gregoria Carver, PAC [address] [facility] [place] [address] Medication Refill Social History Tobacco Use Types [...] Office Visit Gregoria Carver, PAC [facility] [place] 08/04/21 Office Visit Gregoria Carver, PAC [facility] [place] 07/29/21 Office Visit Gregoria Carver PAC [facility] [place] 07/15/21 Office Visit Gregoria Carver PAC [facility] [place] 06/17/21 Office Visit Gregoria Carver PAC [facility] [place] 02/15/21 Office Visit Gregoria Carver PAC [facility] [place] Showing recent visits within past 365 days and meeting all other requirements Future Appointments Date Type Provider Dept 08/11/21 Appointment Gregoria Carver PAC [facility] [place] Showing future appointments within next 90 days [...] Office Visit Gregoria Carver, PAC [facility] [place] 08/04/21 Office Visit Gregoria Carver, PAC [facility] [place] 07/29/21 Office Visit Gregoria Carver, PAC [facility] [place] 07/15/21 Office Visit Gregoria Carver, PAC [facility] [place] 06/17/21 Office Visit Gregoria Carver, PAC [facility] [place] 02/15/21 Office Visit Gregoria Carver, PAC [facility] [place] Showing recent visits within past 365 days and meeting all other requirements Future Appointments Date Type Provider Dept 08/11/21 Appointment Gregoria Carver PAC [facility] [place] Showing future appointments within next 90 days and meeting all other requirements Passed - GFR on record in past 12 months GFR, EST. NONAFRICAN Date Value Ref Range Status 07/12/2021 >60 >=60 Final documented in this encounter Plan of Treatment Upcoming Encounters Date Type Department Care Team (Late st Contact Info) Description 10/14/2024 11:30 AM CDT [facility] 1 [place] [address] Billy Hubbard MD #1 [place] [address] Discharge Disposition: Discharged to home or Selfcare 11/27/2024 11:00 AM CDT Office Visit [facility] - [facility] #2 [place] [address] Luis E Trent MD #[address] [address] 12/04/2024 2:00 PM CDT [facility] Visit [facility] - [place] [address] [place] [address] Gregoria Carver, [facility] [address] [place] [address] documented as of this encounter Visit Diagnoses Not on filedocumented in this encounter Additional Health Concerns Infection Onset Date Last Indicated Resolved Time 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
--- OUTSIDE RECORDS SUMMARY | 2024-10-01 20:58 | XMS_ITS | Clinical Summary ---
Author Organization [facility] Address [address] [facility], [place] [address] Phone Care Team Providers Care Heating And Ventilation Engineer Name Role Phone Genaro Joseph DPM Unavailable [phone] Luis E Trent MD Unavailable Gregoria [...] blood pressure 09/11/2018 Dermatophytosis of nail 09/06/2016 [place] or callus 11/10/2015 Type 2 diabetes mellitus [...] Description 08/21/2024 11:00 AM CDT Office Visit [facility] Endocr[facility] #2 [place] [phone] Luis E Trent MD Type 2 diabetes mellitus with diabetic polyneuropathy, with long-term current use of insulin (HCC) (Primary Dx); Overweight; Financial difficulties Discharge Disposition: Discharged to home or Selfcare 08/21/2024 Travel 08/06/2024 Results Follow-Up [facility] Endocrinology [facility] [address]2 [place] [address] Luis E Trent MD UR MICROALBUMIN/CREATIN INE RATIO RANDOM 08/06/2024 Results Follow-Up [facility] Primary Care [facility] 2 [place] [address] Gregoria Carver PAC HEPATITIS C ANTIBODY 08/01/2024 Travel 08/01/2024 Refill [facility] Endocrin[facility] [address] [place] [address] Luis E Trent MD Medication Refill 08/01/2024 Refill [facility] - Internal [facility] [address] [place] [address] Gregoria Carver, PAC Medication Refill 07/09/2024 [facility]ill [facility] [place] [address] [facility] [place] [place] [address] Gregoria Carver, PAC Medication Refill from Last 3 Months Immunizations Immunization Administration Dates Next Due Covid-19, Mrna, Lnp-s, Pf, 1 00 Mcg Or 50 Mcg Dose (MODERNA) 03/15/2021,07/28/2020,06/30/2020 Influenza Vaccine 01/07/2012 Influenza Vaccine greater than 3 yrs 12/29/2018 Influenza Vaccine, MDCK,quad rivalent, pres free 12/06/2015 Influenza Vaccine, Quadrivalent, PF 11/0 04/2020,12/12/2019,01/01/2019,2015 Influenza, High-dose, Quadrivalent 01/12/2021 Influenza, Injectable, Quadrivalent [...] pure alcohol) beer and wine coolers occaisionally. [facility] Utilities Answer Date Recorded In the past 12 months has [employer], gas, oil, or water [employer] threatened to shut off services in your home? Patient declined 05/29/2024 Social Connection and Isolation Panel Answer Date Recorded In a typical week, how many times do you talk on the phone with family, friends, or neighbors? Patient declined 05/29/2024 How often do you get togethe r with friends or relatives? Patient declined 05/29/2024 How often do you attend moravian or shinto serv ices? Patient declined 05/29/2024 Do you belong to any clubs o r organizations such as moravian groups, unions, fraternal or athletic groups, or [...] Total Score - Questions 1-9 0 05/11 [facility] - [...] place to sleep or slept in a residential (including now)? Patient unable to answer 06/07/2023 [...] any time in the past 12 m [facility], were you homeless or living in a residential (including now)? Yes 05/29/2024 Education Answer Date [...] 11:30 AM CDT [facility] 1 [place] [address] Billy Hubbard MD [address]1 [place] [address] Discharge Disposition: Discharged to home or Selfcare 11/27/2024 11:00 AM CDT [facility] #2 [place] [address] Luis E Trent MD [address] [phone] 12/04/2024 2:00 PM CDT [facility] Visit [facility] - Internal [facility] - [place] [address] [place] [address] Gregoria Carver, [facility] [address] [place] [address] Health Maintenance Due Date Last Done Comments [...] % Blood 08/21/2024 10:5 7 AM CDT us Luis E Trent MD POINT OF CARE TESTING (MANUAL) F inal Result * UR MICROALBUMIN/CREATININE RATIO RANDOM (08/01/2024 2:55 PM CDT) RAN UR MICROALBUMIN 5.26 mg/dL 08/01/2024 4:30 PM CDT [facility] Comment:No reference range h as been established. Consider Clinical Correlation. CREATININE URINE 184.4 mg/dL 08/02/19 4:30 PM CDT [facility] Comment:No reference range h as been established. Consider Clinical Correlation. ALB/CREAT RATIO 29 0 - 30 mg/g CRE 08/01/2024 4:30 PM CDT [facility] Urine Non-Phlebotomy Collection / Unknown 08/01/2024 2:55 PM CDT 08/01/2024 4:06 PM CDT us Luis E Trent MD URINE ORDERABLES Final Result Performing Organization Address City/[facility]/ZIP Co de Phone Number [facility] [address] [place] [address] * HEPATITIS C ANTIBODY (08/01/2024 2:55 PM CDT) hepatitis C antibody 0.17 <1 S/CO 08/01/2024 10:19 PM CDT [facility] Comment: Signal/Cutoff ratio < 0.79 is Nondetected Signal/Cutoff ratio 0.80-0.99 is Grayzone Signal/Cutoff ratio > 0.99 is Detected Supplemental assays are recommended if signal/cutoff ratio is >/=1.00. Signal/cutoff ratio result >/= 5.00 is 97% predictive of positivity for recombinant immunoblot assay (RIBA) and will be reported to the [place] Department of Public Health as required. Blood Venipuncture / Unknown 08/01/2024 2:55 PM CDT 08/01/2024 4:07 PM CDT us Gregoria Carver PAC CHEMISTRY ORDERAB LES Final Result Performing Organization Address City/[facility]/ZIP Co de Phone Number [facility] [address] [place] [address], [place] from Last 3 Months Insurance MEDICAID [place] MEDICARE Advance Directives * Full Code (Latest [...] 11:43 AM 08/24/2022 11:17 AM Care Teams Heating And Ventilation Engineer Relationship Specialty Start Date End Date Gregoria Carver, [facility] [address] [place] [address] PCP - General Physician Non Ferrous Material Handler 02/22/21 Genaro Joseph DPM Consulting Physician Podiatry 10/19/15 Luis E Trent MD [address] [address] Consulting Physician Endocrinology 03/31/20
--- OUTSIDE RECORDS SUMMARY | 2024-10-01 20:58 | XMS_ITS | Encounter Summary ---
Author Organization [facility] Address [address] [place] [address] Phone Care Team Providers Care Sales Operations Specialist Name Role Phone Genaro Joseph DPM Unavailable Luis E Trent MD Unavailable Gregoria Carver PAC Primary Care Pro vider Reason for Visit * Reason Comments Medication Refill Encounter Details Date Type Department Care Team (Late st Contact Info) Description 04/25/2022 Refill [facility] #2 [place] [address] Luis E Trent MD #[address] [address] Medication Refill Social History Tobacco [...] Coronavirus/COVID-19? No / Unsure 04/19/2022 2:01 PM APPLE PICKING SUPERVISOR documented as of this encounter Miscellaneous Notes * Telephone Encounter - Iqra Rodriguez RN - 04/26/2022 8:58 AM APPLE PICKING SUPERVISOR Requested Prescriptions Pending Prescriptions Disp Refills ??? metFORMIN (GLUCOPHAGE) 1000 MG Tablet [Pharmacy Med Name: metFORMIN HCl 1000MG TABS*] 56 Tablet Sig: TAKE 1 TABLET BY MOUTH TWICE A DAY WITH FOOD Next appt: 08/02/2022 E PICKING SUPERVISOR documented in this encounter Plan of Treatment Upcoming Encounters Date Type Department Care Team (Late st Contact Info) Description 10/14/2024 11:30 AM CDT [facility] 1 [place] [address] Billy Hubbard MD [address]1 [place] [address] Discharge Disposition: Discharged to home or Selfcare 11/27/2024 11:00 AM CDT Office Visit [facility] - Endocrinology [facility] #2 [place] [address] Luis E Trent MD #[address] [address] 12/04/2024 2:00 PM CDT Office [facility] - Internal Medicine [facility] [address] [place] [address] Gregoria Carver, [facility] [address] [place] [address] documented as of this encounter Visit Diagnoses Not on filedocumented in this encounter Additional Health Concerns Infection Onset Date Last Indicated Resolved Time 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
[2024-10-01 21:09] VITALS: BP 138/86; PULSE 93; RESP 16; TEMP 36.6; O2SAT 100
[2024-10-01 23:14] LABS: Hematocrit 32.9 % (42.0-52.0); Hemoglobin 10.8 g/dL (14.0-18.0); Immature Granulocyte Percent A 0.3 % (0-0.5); Lymphocytes Absolute Auto 2.27 K/mm3 (0.9-3.2); Mean Corpuscular HGB Conc 32.8 g/dl (32-36); Mean Corpuscular Hemoglobin 28.3 pg (26-34); Mean Corpuscular Volume 86.4 fl (80-100); Nucleated Red Blood Cells Absolute Auto 0.000 K/mm3 (0.0-0.012); Nucleated Red Blood Cells Perc 0.0 % (0.0-0.2); Platelet Count Result 165 k/mm3 (150-375); Red Blood Count 3.81 M/mm3 (4.6-6.20); White Blood Count 8.9 K/mm3 (4.5-10.0)
[2024-10-01 23:15] LABS: Add Urine Microscopic? NO; Appearance Urine Clear (Clear); Glucose Urine UA 3+ mg/dL (Negative); Leukocyte Esterase Ur Negative LEU/UL (Negative); Nitrate Urine Negative (Negative); Specific Grav Ur 1.015 (1.001-1.035)
[2024-10-01 23:33] LABS: Alanine Aminotransferase 31 U/L (6-50); Albumin Level 4.0 g/dL (3.5-5.1); Alkaline Phosphatase 60 U/L (38-126); Anion Gap 10 mmol/L (4-12); Aspartate Amino Transferase 28 U/L (17-59); Bilirubin,Total 0.7 mg/dL (0.2-1.3); Blood Urea Nitrogen 25 mg/dL (9-20); Calcium 8.8 mg/dL (8.4-10.2); Carbon Dioxide 19 mmol/L (22-30); Chloride 100 mmol/L (98-107); Estimated CRCL calculation 92 ml/min; Estimated Glomerular Filt Rate > 60; Glucose 256 mg/dL (65-110); Potassium 3.7 mmol/L (3.4-5.0); Sodium 129 mmol/L (137-145); Total Protein 7.2 g/dL (6.3-8.2)
[2024-10-02] VITALS (20 sets, daily range): BP systolic 111–137; BP diastolic 68–88; PULSE 76–104; RESP 14–30; O2SAT 98–100
--- NOTE | 2024-10-02 00:25 | PC.NURSE ---
Patient called multiple times to be placed in room. No answer. Attempted to contact pt sister with no answer.
--- NOTE | 2024-10-02 00:26 | PC.NURSE ---
this nurse called pt sister (Radha Blanc [phone]) to inform her pt left the er AMA. no message left.
--- NOTE | 2024-10-02 00:32 | PC.NURSE ---
spoke with pt sister Radha [phone] and updated her on pt leaving the ER AMJoshua
--- NOTE | 2024-10-02 01:02 | PC.NURSE ---
Patient returned to ED by Meir herrera. Patient sitting near triage desk.
--- NOTE | 2024-10-02 01:42 | ECG_ITS ---
Test Date: 2024-10-02 01:42:17 Measurements Intervals [place] Rate: 82 P: -1 VT: 147 QRS: 13 QRSD: 97 T: 18 QT: 371 QTc: 434 Interpretive Statements SINUS RHYTHM NORMAL ECG No previous ECG available for comparison Electronically Signed On 10-02-2024 10:04:53 CDT by Camron Pagan M.D.
--- OUTSIDE RECORDS SUMMARY | 2024-10-02 02:34 | XMS_ITS | Encounter Summary ---
Author Organization [facility] Address [address] [place] [address] Phone Care Team Providers Care Pediatric Licensed Practical Nurse Name Role Phone Genaro Joseph DPM Unavailable [phone] Luis E Trent MD Unavailable Gregoria Carver PAC Primary Care Pro vider Reason for Visit * Reason Comments Medication Refill Encounter Details Date Type Department Care Team (Late st Contact Info) Description 05/24/2022 Refill [facility] - Internal Medicine - [place] [address] [place] [address] Gergoria Carver, PAC [address] [facility] [place] [address] Medication Refill Social History Tobacco Use Types [...] encounter Miscellaneous Notes * Telephone Encounter - Sheirn Sierra RN - 05/24/2022 9:18 AM CDT [...] 08/06/21 Office Visit Gregoria Carver, ANGEL [facility] 08/04/21 Office Visit Gregoria Carver, ANGEL [facility] 07/29/21 Office Visit Gregoria Carver, PAC [facility] [place] 07/15/21 Office Visit Gregoria Carver, PAC [facility] [place] 06/17/21 Office Visit Gregoria Carver, PAC [facility] [place] Showing recent visits within past 365 days and meeting all other requirements Future Appointments Date Type Provider Dept 05/25/22 Appointment Gregoria Carver, ANGEL [facility] [place] Showing future appointments within next 90 days [...] Office Visit Gregoria Carver, PAC [facility] [place] 08/04/21 Office Visit Gregoria Carver, PAC [facility] [place] 07/29/21 Office Visit Gregoria Carver, PAC [facility] [place] 07/15/21 Office Visit Gregoria Carver, PAC [facility] [place] 06/17/21 Office Visit Gregoria Carver, ANGEL [facility] [place] Showing recent visits within past 365 days and meeting all other requirements Future Appointments Date Type Provider Dept 05/25/22 Appointment Gregoria Carver PAC [facility] [place] Showing future appointments within next 90 days and meeting all other requirements documented in this encounter Plan of Treatment Upcoming Encounters Date Type Department Care Team (Late st Contact Info) Description 10/14/2024 11:30 AM CDT Office Visit [facility] 1 [place] [address] Billy Hubbard MD #1 [place] [address] Discharge Disposition: Discharged to home or Selfcare 11/27/2024 11:00 AM CDT Office Visit [facility] Group - Endocrinology [facility] #2 [place] [address] Luis E Trent MD #[address] [address] 12/04/2024 2:00 PM CDT [facility] Visit [facility] - [place] [address] [place] [address] Gregoria Carver PAC [address] [place] [address] documented as of this encounter Visit Diagnoses Not on filedocumented in this encounter Additional Health Concerns Infection Onset Date Last Indicated Resolved Time MRSA 10/04/2022 02/06/2023 05/22/2023 9:05 AM CDT documented as of this encounter Care Teams Pediatric Licensed Practical Nurse Relationship Specialty Start Date End Date Gregoria Carver PAC [address] [place] [address] PCP - General Physician Director Of Automation 02/22/21 Genaro Joseph DPM Consulting Physician Podiatry 10/19/15 Luis E Trent MD #[address] [address] Consulting Physician Endocrinology 03/31/20 documented as of this encounter
--- OUTSIDE RECORDS SUMMARY | 2024-10-02 02:34 | XMS_ITS | Encounter Summary ---
Author Organization [facility] Address [address] [place] [address] Phone Care Team Providers Care Fabrication Inspector Name Role Phone Genaro Joseph DPM Unavailable [phone] Luis E Trent MD Unavailable Gregoria Carver PAC Primary Care Pro vider Reason for Visit * Reason Comments Medication Refill Encounter Details Date Type Department Care Team (Late st Contact Info) Description 04/25/2022 Refill [facility] #2 [place] [address] Luis E Trent MD #[address] [address] Medication Refill Social History Tobacco [...] Coronavirus/COVID-19? No / Unsure 04/19/2022 2:01 PM ADOBE CQ DEVELOPER documented as of this encounter Miscellaneous Notes * Telephone Encounter - Iqra Rodriguez RN - 04/26/2022 8:58 AM ADOBE CQ DEVELOPER Requested Prescriptions Pending Prescriptions Disp Refills ??? metFORMIN (GLUCOPHAGE) 1000 MG Tablet [Pharmacy Med Name: metFORMIN HCl 1000MG TABS*] 56 Tablet Sig: TAKE 1 TABLET BY MOUTH TWICE A DAY WITH FOOD Next appt: 08/02/2022 E CQ DEVELOPER documented in this encounter Plan of Treatment Upcoming Encounters Date Type Department Care Team (Late st Contact Info) Description 10/14/2024 11:30 AM CDT [facility] 1 [place] [address] Billy Hubbard MD #1 [place] [address] Discharge Disposition: Discharged to home or Selfcare 11/27/2024 11:00 AM CDT Office Visit [facility] Medical Group - Endocrinology [facility] #2 [place] [address] Luis E Trent MD #[address] [address] 12/04/2024 2:00 PM CDT Office Visit [facility] Medical Group - Internal Medicine [facility] [address] [place] [address] Gregoria Carver, [facility] [address] [place] [address] documented as of this encounter Visit Diagnoses Not on filedocumented in this encounter Additional Health Concerns Infection Onset Date Last Indicated Resolved Time MRSA 10/04/2022 02/06/2023 05/22/2023 9:05 AM CDT documented as of this encounter Care Teams Fabrication Inspector Relationship Specialty Start Date End Date Gregoria Carver PAC [address] [place] [address] PCP - General Physician College Professor 02/22/21 Genaro Joseph DPM Consulting Physician Podiatry 10/19/15 Luis E Trent MD #[address] [address] Consulting Physician Endocrinology 03/31/20 documented as of this encounter
--- OUTSIDE RECORDS SUMMARY | 2024-10-02 02:34 | XMS_ITS | Encounter Summary ---
Author Organization [facility] Address [address] [place] [address] Phone Care Team Providers Care Act English Tutor Name Role Phone Genaro Joseph DPM Unavailable [phone] Luis E Trent MD Unavailable Gregoria Carver PAC Primary Care Pro vider Reason for Visit * Reason Onset Date Comments Advice Only 06/18/2024 Encounter Details Date Type Department Care Team (Late st Contact Info) Description 06/18/2024 [facility] [address] [place] [address] Gregoria Carver, PAC [address] [place] [address] Advice Only Social History Tobacco Use Types Packs/Day Years Used Date Smoking Tobacco: Former Cigarettes Q uit: 06/16/2021 Cigars Passive Smoke Exposure: Past Smokeless Tobacco: Never Alcohol Use Standard Drinks/Week Comments Not Currently 0 (1 standard drink = 0.6 oz pure alcohol) beer and wine coolers occaisionally. [facility] Utilities Answer Date Recorded In the past 12 months has [employer], gas, oil, or water company threatened to [...] declined 05/29/2024 How often do you attend druze or yazidism serv ices? Patient declined 05/29/2024 Do you belong to any clubs o r organizations such as druze groups, unions, fraternal or athletic groups, or [...] Total Score - Questions 1-9 0 05/11 [facility] - [...] or slept in a half-way (including now)? Patient unable to answer 06/07/2023 [...] time in the past 12 m [facility], were you homeless or living in a half-way (including now)? Yes 05/29/2024 Education Answer Date [...] to be seen . Please call Jennifer [phone] regarding information. documented in this encounter Plan of Treatment Upcoming Encounters Date Type Department Care Team (Late st Contact Info) Description 10/14/2024 11:30 AM CDT Office Visit [facility] 1 [place] [address] Billy Hubbard MD #1 [place] [address] Discharge Disposition: Discharged to home or Selfcare 11/27/2024 11:00 AM CDT Office Visit [facility] - Endocrinology [facility] #2 [place] [address] Luis E Trent MD #[address] [address] 12/04/2024 2:00 PM CDT Office Visit [facility] Medical Group - Internal Medicine - [place] [address] [place] [address] Gregoria Carver, PAC [address] [place] [address] documented as of this encounter Visit Diagnoses Not on filedocumented in this encounter Additional Health Concerns Assessment Noted Time PHQ-9 Depression Total Score: 0 05/26/19 23 1:00 PM CDT documented as of this encounter Care Teams Act English Tutor Relationship Specialty Start Date End Date Gregoria Carver, PAC [address] [place] [address] PCP - General Physician Java Performance Engineer 02/22/21 Genaro Joseph DPM Consulting Physician Podiatry 10/19/15 Luis E Trent MD #2 [facility] [address] [address] Consulting Physician Endocrinology 03/31/20 documented as of this encounter
--- OUTSIDE RECORDS SUMMARY | 2024-10-02 02:34 | XMS_ITS | Encounter Summary ---
Author Organization [facility] Address [address] [place] [address] Phone Care Team Providers Care Field Artillery Cannoneer Name Role Phone Genaro Joseph DPM Unavailable [phone] Luis E Trent MD Unavailable Gregoria Carver PAC Primary Care Pro vider Reason for Visit * Reason Comments Medication Refill Encounter Details Date Type Department Care Team (Late st Contact Info) Description 07/11/2023 Refill [facility] Medical Group - Internal Medicine - [place] [address] [place] [address] Gregoria Carver, PAC [address] [place] [address] Medication Refill Social History Tobacco Use Types Packs/Day Years Used Date Smoking Tobacco: Every Day Cigarettes Last attempted to quit: 06/16/2021 Cigars Passive Smoke Exposure: Current Smokeless Tobacco: Never Alcohol Use Standard Drinks/Week Comments Not Currently 0 (1 standard drink = 0.6 oz pure alcohol) beer and wine coolers occaisionally. [facility] Utilities Answer Date Recorded In the past 12 months has [employer], gas, oil, or water company threatened to [...] How often do you attend chur or adventist services? Patient unable to answer 06/07/2023 Do you belong to any clubs o r organizations such as buddhism groups, unions, fraternal or athletic groups, or [...] place to sleep or slept in a correction (including now)? Patient unable to answer 06/07/2023 [...] Office Visit Gregoria Carver, PAC [facility] [place] 02/28/23 Office Visit Gregoria Carver, PAC [facility] 01/31/23 Office Visit Gregoria Carver, PAC [facility] 10/03/22 Office Visit Gregoria Carver, PAC [facility] [place] 09/19/22 Office Visit Gregoria Carver, PAC [facility] [place] Showing recent visits within past 365 days and meeting all other requirements Future Appointments Date Type Provider Dept 08/29/23 Appointment Gregoria Carver, PAC [facility] Showing future appointments within next [...] 11:30 AM CDT Office Visit [facility] 1 [place] [address] Billy Hubbard MD #1 [place] [address] Discharge Disposition: Discharged to home or Selfcare 11/27/2024 11:00 AM CDT Office Visit [facility] Medical Group - Endocrinology [facility] #2 [place] [address] Luis E Trent MD #2 [facility] [address] [place] [address] 12/04/2024 2:00 PM CDT Office Visit [facility] Medical Group - Internal [facility] [address] [place] [address] Gregoria Carver, [facility] [address] [place] [address] documented as of this encounter Visit Diagnoses Not on filedocumented in this encounter Additional Health Concerns Assessment Noted Time PHQ-9 Depression Total Score: 0 05/26/19 23 1:00 PM CDT documented as of this encounter Care Teams Field Artillery Cannoneer Relationship Specialty Start Date End Date Gregoria Carver, PAC [address] [place] [address] PCP - General Physician Dog Handler Or Trainer 02/22/21 Genaro Joseph DPM Consulting Physician Podiatry 10/19/15 Luis E Trent MD [address] [address] Consulting Physician Endocrinology 03/31/20 documented as of this encounter
--- OUTSIDE RECORDS SUMMARY | 2024-10-02 02:34 | XMS_ITS | Encounter Summary ---
Author Organization [facility] Address [address] [place] [address] Phone Care Team Providers Care Set Making Machine Operator Name Role Phone Genaro Joseph DPM Unavailable Luis E Trent MD Unavailable Gregoria Carver PAC Primary Care Pro vider Reason for Visit * Reason Comments Medication Refill Encounter Details Date Type Department Care Team (Late st Contact Info) Description 07/25/2023 Refill [facility] - Endocrinology [facility] #2 [place] [address] Luis E Trent MD #[address] [address] Medication Refill Social History Tobacco Use Types Packs/Day Years Used Date Smoking Tobacco: Every Day Cigarettes Last attempted to quit: 06/16/2021 Cigars Passive Smoke Exposure: Current Smokeless Tobacco: Never Alcohol Use Standard Drinks/Week Comments Not Currently 0 (1 standard drink = 0.6 oz pure alcohol) beer and wine coolers occaisionally. [facility] Utilities Answer Date Recorded In the past 12 months has [employer], gas, oil, or water company threatened to [...] often do you attend chur ch or yarsanism services? Patient unable to answer 06/07/2023 Do [...] place to sleep or slept in a retirement (including now)? Patient unable to answer 06/07/2023 [...] AM CDT Medication(s) refilled and signed per [facility] Chronic Medication Refill Standing Order for Pediatric and Adult Patients. documented in this encounter Plan of Treatment Upcoming Encounters Date Type Department Care Team (Late st Contact Info) Description 10/14/2024 11:30 AM CDT [facility] Visit [facility] 1 [place] [address] Billy Hubbard MD #1 [place] [address] Discharge Disposition: Discharged to home or Selfcare 11/27/2024 11:00 AM CDT [facility]ology - [place] #2 [place] [address] Luis E Trent MD [address] [address] 12/04/2024 2:00 PM CDT Office Visit [facility] - Internal Medicine - [place] [address] [place] [address] Gregoria Carver, PAC [address] [place] [address] documented as of this encounter Visit Diagnoses Not on filedocumented in this encounter Additional Health Concerns Assessment Noted Time PHQ-9 Depression Total Score: 0 05/26/19 23 1:00 PM CDT documented as of this encounter Care Teams Set Making Machine Operator Relationship Specialty Start Date End Date Gregoria Carver, PAC [address] [place] [address] PCP - General Physician Product Safety Officer 02/22/21 Genaro Joseph DPM Consulting Physician Podiatry 10/19/15 Luis E Trent MD [address] [address] Consulting Physician Endocrinology 03/31/20 documented as of this encounter
--- OUTSIDE RECORDS SUMMARY | 2024-10-02 02:34 | XMS_ITS | Clinical Summary ---
Author Organization [facility] Address [address] [facility] [place] [address] Phone Care Team Providers Care Prototype Assembler Electronics Name Role Phone Genaro Joseph DPM Unavailable [phone] Luis E Trent MD Unavailable Gregoria [...] blood pressure 09/11/2018 Dermatophytosis of nail 09/06/2016 [place] or callus 11/10/2015 Type 2 diabetes mellitus [...] Description 08/21/2024 11:00 AM CDT [facility] Endocrinology [facility] #2 [place] [address] Luis E Trent MD Type 2 diabetes mellitus with diabetic polyneuropathy, with long-term current use of insulin (HCC) (Primary Dx); Overweight; Financial difficulties Discharge Disposition: Discharged to home or Selfcare 08/21/2024 Travel 08/06/2024 Results [facility] Endocrinology [facility] #2 [place] [address] Luis E Trent MD UR MICROALBUMIN/CREATIN INE RATIO RANDOM 08/06/2024 Results [facility] Primary Care Access Clinic [facility] 2 [place] [address] Gregoria Carver PAC HEPATITIS C ANTIBODY 08/01/2024 Travel 08/01/2024 Refill [facility] Endocrinology [facility] #2 [place] [phone] Luis E Trent MD Medication Refill 08/01/2024 Refill [facility] - Internal Medicine [facility] [address] [place] [address] Gregoria Carver, PAC Medication Refill 07/09/2024 [facility] [place] [address] [facility] [address] Gregoria Carver, PAC Medication Refill from Last [...] pure alcohol) beer and wine coolers occaisionally. [facility] Utilities Answer Date Recorded In the past 12 months has [employer], gas, oil, or water [employer] threatened to shut off services in your home? Patient declined 05/29/2024 Social Connection and Isolation Panel Answer Date Recorded In a typical week, how many times do you talk on the phone with family, friends, or neighbors? Patient declined 05/29/2024 How often do you get togethe r with friends or relatives? Patient declined 05/29/2024 How often do you attend orthodox or gnosticism serv ices? Patient declined 05/29/2024 Do you belong to any clubs o r organizations such as orthodox groups, unions, fraternal or athletic groups, or [...] Score - Questions 1-9 [address] 05/11 [facility] - Occupational Stress [...] any time in the past 12 m [facility], were you homeless or living in a assisted (including now)? Yes 05/29/2024 Education Answer Date [...] 11:30 AM CDT [facility] 1 [place] [address] Billy Hubbard MD #1 [place] [address] Discharge Disposition: Discharged to home or Selfcare 11/27/2024 11:00 AM CDT [facility] Visit [facility] #2 [place] [address] Luis E Trent MD #[address] [phone] 12/04/2024 2:00 PM CDT Office Visit [facility] Internal Medicine - [place] [address] [place] [address] Gregoria Carver, [facility] [address] [facility] [place] [address] Health Maintenance Due Date Last Done Comments [...] MICROALBUMIN 5.26 mg/dL 08/01/2024 4:30 PM CDT [facility] Comment:No reference range h as been established. Consider Clinical Correlation. CREATININE URINE 184.4 mg/dL 08/02/19 4:30 PM CDT [facility] Comment:No reference range h as been established. Consider Clinical Correlation. ALB/CREAT RATIO 29 0 - 30 mg/g CRE 08/01/2024 4:30 PM CDT [facility] Urine Non-Phlebotomy Collection / Unknown 08/01/2024 2:55 PM CDT 08/01/2024 4:06 PM CDT us Luis E Trent MD URINE ORDERABLES Final Result Performing Organization Address City/[facility]/ZIP Co de Phone Number [facility] #1 [place] [address] * HEPATITIS C ANTIBODY (08/01/2024 2:55 PM CDT) hepatitis C antibody 0.17 <1 S/CO 08/01/2024 10:19 PM CDT [facility] Comment: Signal/Cutoff ratio < 0.79 is Nondetected Signal/Cutoff ratio 0.80-0.99 is Grayzone Signal/Cutoff ratio > 0.99 is Detected Supplemental assays are recommended if signal/cutoff ratio is >/=1.00. Signal/cutoff ratio result >/= 5.00 is 97% predictive of positivity for recombinant immunoblot assay (RIBA) and will be reported to the [place] Department of Public Health as required. Blood Venipuncture / Unknown 08/01/2024 2:55 PM CDT 08/01/2024 4:07 PM CDT us Gregoria Carver PAC CHEMISTRY ORDERAB LES Final Result Performing Organization Address City/[facility]/ZIP Co de Phone Number [facility] [address] [place] [address], [place] from Last 3 Months Insurance MEDICAID [place] MED[place]ARE Advance Directives * Full Code (Latest [...] 11:43 AM 08/24/2022 11:17 AM Care Teams Prototype Assembler Electronics Relationship Specialty Start Date End Date Gregoria Carver, [facility] [address] [place] [address] PCP - General Physician Marketing Outreach Coordinator 02/22/21 Genaro Joseph DPM Consulting Physician Podiatry 10/19/15 Luis E Trent MD #[address] [address] Consulting Physician Endocrinology 03/31/20
--- OUTSIDE RECORDS SUMMARY | 2024-10-02 02:34 | XMS_ITS | Encounter Summary ---
Author Organization [facility] Address [address] [place] [address] Phone Care Team Providers Care Public Service Administrator Name Role Phone Genaro Joseph DPM Unavailable [phone] Luis E Trent MD Unavailable Gregoria Carver PAC Primary Care Pro vider Reason for Visit * Reason Comments Medication Refill Encounter Details Date Type Department Care Team (Late st Contact Info) Description 08/10/2021 Refill [facility] - Internal Medicine - [place] [address] [place] [phone] Gregoria Carver, PAC [address] [facility] [place] [address] Medication Refill Social History Tobacco Use Types [...] Office Visit Gregoria Carver, PAC [facility] 08/04/21 Office Visit Gregoria Carver, PAC [facility] 07/29/21 Office Visit Gregoria Carver PAC [facility] 07/15/21 Office Visit Gregoria Carver PAC [facility] 06/17/21 Office Visit Gregoria Carver PAC [facility] 02/15/21 Office Visit Gregoria Carver PAC [facility] [place] Showing recent visits within past 365 days and meeting all other requirements Future Appointments Date Type Provider Dept 08/11/21 Appointment Gregoria Carver PAC [facility] [place] Showing future appointments within next 90 days [...] Office Visit Gregoria Carver, PAC [facility] 08/04/21 Office Visit Gregoria Carver, PAC [facility] 07/29/21 Office Visit Gregoria Carver, PAC [facility] [place] 07/15/21 Office Visit Gregoria Carver, PAC [facility] 06/17/21 Office Visit Gregoria Carver, PAC [facility] [place] 02/15/21 Office Visit Gregoria Carver, PAC [facility] [place] Showing recent visits within past 365 days and meeting all other requirements Future Appointments Date Type Provider Dept 08/11/21 Appointment Gregoria Carver PAC [facility] Showing future appointments within next 90 days and meeting all other requirements Passed - GFR on record in past 12 months GFR, EST. NONAFRICAN Date Value Ref Range Status 07/12/2021 >60 >=60 Final documented in this encounter Plan of Treatment Upcoming Encounters Date Type Department Care Team (Late st Contact Info) Description 10/14/2024 11:30 AM CDT [facility] 1 [place] [address] Billy Hubbard MD #1 [place] [address] Discharge Disposition: Discharged to home or Selfcare 11/27/2024 11:00 AM CDT Office Visit [facility] - Endocrinology [facility] #2 [place] [address] Luis E Trent MD #[address] [phone] 12/04/2024 2:00 PM CDT [facility] Visit [facility] - [place] [address] [place] [address] Gregoria Carver, [facility] [address] [place] [address] documented as of this encounter Visit Diagnoses Not on filedocumented in this encounter Additional Health Concerns Infection Onset Date Last Indicated Resolved Time 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
--- OUTSIDE RECORDS SUMMARY | 2024-10-02 02:34 | XMS_ITS | Encounter Summary ---
Author Organization [facility] Address [address] [place] [address] Phone Care Team Providers Care Signals Analyst Name Role Phone Genaro Joseph DPM Unavailable [phone] Luis E Trent MD Unavailable Gregoria Carver PAC Primary Care Pro vider Reason for Visit * Reason Comments Medication Refill Encounter Details Date Type Department Care Team (Late st Contact Info) Description 08/15/2023 Refill [facility] - Internal Medicine [facility] [address] [place] [address] Tavo Vargas MD [address] [place] [address] Medication Refill Social History Tobacco Use Types Packs/Day Years Used Date Smoking Tobacco: Every Day Cigarettes Last attempted to quit: 06/16/2021 Cigars Passive Smoke Exposure: Current Smokeless Tobacco: Never Alcohol Use Standard Drinks/Week Comments Not Currently 0 (1 standard drink = 0.6 oz pure alcohol) beer and wine coolers occaisionally. [facility] Utilities Answer Date Recorded In [...] often do you attend chur ch or pentecostalism services? Patient unable to answer 06/07/2023 Do you belong to any clubs o r organizations such as adventism groups, unions, fraternal or athletic groups, or [...] place to sleep or slept in a skilled nursing (including now)? Patient unable to answer 06/07/2023 [...] Date Type Provider Dept 06/07/23 Office Visit Gregoira Carver, PAC [facility] 02/28/23 Office Visit Gregoria Carver, PAC [facility] 01/31/23 Office Visit Gregoria Carver, PAC [facility] 10/03/22 Office Visit Gregoria Carver, PAC [facility] 09/19/22 Office Visit Gregoria Carver, PAC [facility] Showing recent visits within past 365 days [...] Description 10/14/2024 11:30 AM CDT Office Visit [facility] 1 [place] [address] Billy Hubbard MD #1 [place] [address] Discharge Disposition: Discharged to home or Selfcare 11/27/2024 11:00 AM CDT Office Visit [facility] - Endocrinology [facility] #2 [place] [address] Luis E Trent MD [address]2 [place] [facility] [address] [place] [address] 12/04/2024 2:00 PM CDT Office Visit [facility] - Internal Medicine [facility] [address] [place] [address] Gregoria Carver, PAC [address] [place] [address] documented as of this encounter Visit Diagnoses Not on filedocumented in this encounter Additional Health Concerns Assessment Noted Time PHQ-9 Depression Total Score: 0 05/26/19 23 1:00 PM CDT documented as of this encounter Care Teams Signals Analyst Relationship Specialty Start Date End Date Gregoria Carver, PAC [address] [place] [address] PCP - General Physician Jukebox Coin Collector 02/22/21 Genaro Joseph DPM Consulting Physician Podiatry 10/19/15 Luis E Trent MD [address] [address] Consulting Physician Endocrinology 03/31/20 documented as of this encounter
--- OUTSIDE RECORDS SUMMARY | 2024-10-02 02:34 | XMS_ITS | Encounter Summary ---
Author Organization [facility] Address [address] [place] [address] Phone Care Team Providers Care Sub Plant Manager Name Role Phone Genaro Joseph DPM Unavailable [phone] Luis E Trent MD Unavailable Gregoria Carver PAC Primary Care Pro vider Reason for Visit * Reason Comments Medication Refill Encounter Details Date Type Department Care Team (Late st Contact Info) Description 04/25/2022 Refill [facility] - Internal Medicine - [place] [address] [place] [phone] Gregoria Carver, PAC [address] [facility] [place] [address] Medication Refill Social History Tobacco Use Types [...] Coronavirus/COVID-19? No / Unsure 04/19/2022 2:01 PM REAL ESTATE TRANSACTION COORDINATOR documented as of this encounter Miscellaneous Notes [...] Office Visit Gregoria Carver, PAC [facility] [place] 08/04/21 Office Visit Gregoria Carver, PAC [facility] [place] 07/29/21 Office Visit rGegoria Carver, PAC [facility] [place] 07/15/21 Office Visit Gregoria Carver, PAC [facility] [place] 06/17/21 Office Visit Gregoria Carver, PAC [facility] [place] Showing recent visits within past 365 days and meeting all other requirements Future Appointments Date Type Provider Dept 05/11/22 Appointment Gregoria Carver, PAC [facility] [place] Showing future appointments within next 90 days [...] Office Visit Gregoria Carver, PAC [facility] [place] 08/04/21 Office Visit Gregoria Carver, PAC [facility] [place] 07/29/21 Office Visit Gregoria Carver, PAC [facility] [place] 07/15/21 Office Visit Gregoria Carver, PAC [facility] [place] 06/17/21 Office Visit Gregoria Carver PAC [facility] [place] Showing recent visits within past 365 days and meeting all other requirements Future Appointments Date Type Provider Dept 05/11/22 Appointment Gregoria Carver PAC [facility] [place] Showing future appointments within next 90 days and meeting all other requirements Passed - GFR on record in past 12 months GFR, EST. NONAFRICAN Date Value Ref Range Status 04/19/2022 >60 >=60 Final ESTATE TRANSACTION COORDINATOR documented in this encounter Plan of Treatment Upcoming Encounters Date Type Department Care Team (Late st Contact Info) Description 10/14/2024 11:30 AM CDT Office Visit [facility] 1 [place] [address] Billy Hubbard MD #1 [place] [address] Discharge Disposition: Discharged to home or Selfcare 11/27/2024 11:00 AM CDT [facility] Visit [facility] #2 [place] [address] Luis E Trent MD #[address] [address] 12/04/2024 2:00 PM CDT Office Visit [facility] - Internal Medicine [facility] [address] [place] [address] Gregoria Carver, [facility] [address] [place] [address] documented as of this encounter Visit Diagnoses Not on filedocumented in this encounter Additional Health Concerns Infection Onset Date Last Indicated Resolved Time MRSA 10/04/2022 02/06/2023 05/22/2023 9:05 AM CDT documented as of this encounter Care Teams Sub Plant Manager Relationship Specialty Start Date End Date Gregoria Carver, [facility] [address] [place] [address] PCP - General Physician Sliver Lapper 02/22/21 Genaro Joseph DPM Consulting Physician Podiatry 10/19/15 Luis E Trent MD #[address] [address] Consulting Physician Endocrinology 03/31/20 documented as of this encounter
--- OUTSIDE RECORDS SUMMARY | 2024-10-02 02:34 | XMS_ITS | Encounter Summary ---
Author Organization [facility] Address [address] [place] [address] Phone Care Team Providers Care Machine Stacker Name Role Phone Genaro Joseph DPM Unavailable [phone] Luis E Trent MD Unavailable Gregoria Carver PAC Primary Care Pro vider Reason for Visit * Reason Comments Medication Refill Encounter Details Date Type Department Care Team (Late st Contact Info) Description 05/16/2023 Refill [facility] - Internal Medicine - [place] [address] [place] [address] Gregoria Carver, PAC [address] [facility] [place] [address] Medication Refill Social History Tobacco Use Types Packs/Day Years Used Date Smoking Tobacco: Former Cigarettes Q uit: 06/16/2021 Cigars Passive Smoke Exposure: Current Smokeless Tobacco: Never Alcohol Use Standard Drinks/Week Comments Not Currently 0 (1 standard drink = 0.6 oz pure alcohol) beer and wine coolers occaisionally. [facility] Utilities Answer Date Recorded In the past 12 months has [employer], gas, oil, or water [employer] threatened to shut off services in your [...] to sleep or slept in a senior care (including now)? No 05/19/2023 Education Answer Date [...] 02/28/23 Office Visit Gregoria Carver, PAC [facility] 01/31/23 Office Visit Gregoria Carver, PAC [facility] 10/03/22 Office Visit Gregoria Carver, PAC [facility] [place] 09/19/22 Office Visit Gregoria Carver, PAC [facility] [place] 05/25/22 Office Visit Gregoria Carver PAC [facility] [place] Showing recent visits within past 365 days [...] 02/28/23 Office Visit Gregoria Carver, PAC [facility] 01/31/23 Office Visit Gregoria Carver, PAC [facility] 10/03/22 Office Visit Gregoria Carver, PAC [facility] [place] 09/19/22 Office Visit Gregoria Carver, PAC [facility] [place] 05/25/22 Office Visit Gregoria Carver, PAC [facility] [place] Showing recent visits within past 365 days [...] Value Ref Range Status 05/31/2022 No Final TICS DIRECTOR documented in this encounter Plan of Treatment Upcoming Encounters Date Type Department Care Team (Late st Contact Info) Description 10/14/2024 11:30 AM CDT [facility] 1 [place] [address] Billy Hubbard MD #1 [place] [address] Discharge Disposition: Discharged to home or Selfcare 11/27/2024 11:00 AM CDT Office Visit [facility] - Endocrinology [facility] #2 [place] [address] Luis E Trent MD #[address] [address] 12/04/2024 2:00 PM CDT [facility] - [place] [address] [place] [address] Gregoria Carver, PAC [address] [place] [address] documented as of this encounter Visit Diagnoses Not on filedocumented in this encounter Additional Health Concerns Infection Onset Date Last Indicated Resolved Time MRSA 10/04/2022 02/06/2023 05/22/2023 9:05 AM CDT Assessment Noted Time PHQ-9 Depression Total Score: 0 05/26/19 1:00 PM CDT documented as of this encounter Care Teams Machine Stacker Relationship Specialty Start Date End Date Gregoria Carver, PAC [address] [place] [address] PCP - General Physician Magneto Specialist 02/22/21 Genaro Joseph DPM Consulting Physician Podiatry 10/19/15 Luis E Trent MD #[address] [address] Consulting Physician Endocrinology 03/31/20 documented as of this encounter
--- OUTSIDE RECORDS SUMMARY | 2024-10-02 02:34 | XMS_ITS | Encounter Summary ---
Author Organization [facility] Address [address] [place] [address] Phone Care Team Providers Care Casting Tester Name Role Phone Genaro Joseph DPM Unavailable [phone] Luis E Trent MD Unavailable Gregoria Carver PAC Primary Care Pro vider Reason for Visit * Reason Comments Medication Refill Encounter Details Date Type Department Care Team (Late st Contact Info) Description 06/13/2023 Refill [facility] Medical Group - Internal Medicine - [place] [address] [place] [id number] Gregoria Carver, PAC [address] [facility] [place] [address] Medication Refill Social History Tobacco Use Types Packs/Day Years Used Date Smoking Tobacco: Every Day Cigarettes Last attempted to quit: 06/16/2021 Cigars Passive Smoke Exposure: Current Smokeless Tobacco: Never Alcohol Use Standard Drinks/Week Comments Not Currently 0 (1 standard drink = 0.6 oz pure alcohol) beer and wine coolers occaisionally. [facility] Utilities Answer Date Recorded In the past 12 months has [employer], gas, oil, or water company threatened to [...] How often do you attend chur or sabianist services? Patient unable to answer 06/07/2023 Do you belong to any clubs o r organizations such as mormon groups, unions, fraternal or athletic groups, or [...] Office Visit Gregoria Carver, PAC [facility] [place] 02/28/23 Office Visit Gregoria Carver, PAC [facility] 01/31/23 Office Visit Gregoria Carver, PAC [facility] 10/03/22 Office Visit Gregoria Carver, PAC [facility] [place] 09/19/22 Office Visit Gregoria Carver, PAC [facility] [place] Showing recent visits within past 365 days and meeting all other requirements Future Appointments Date Type Provider Dept 08/29/23 Appointment Gregoria Carver, PAC [facility] Showing future appointments [...] Office Visit Gregoria Carver PAC [facility] [place] 02/28/23 Office Visit Gregoria Carver, PAC [facility] 01/31/23 Office Visit Gregoria Carver, PAC [facility] 10/03/22 Office Visit Gregoria Carver, PAC [facility] [place] 09/19/22 Office Visit Gregoria Carver, PAC [facility] [place] Showing recent visits within past 365 days and meeting all other requirements Future Appointments Date Type Provider Dept 08/29/23 Appointment Gregoria Carver, PAC [facility] Showing future appointments [...] [facility] [address] [place] [address] Billy Hubbard MD [address] [place] [address] Discharge Disposition: Discharged to home or Selfcare 11/27/2024 11:00 AM CDT Office Visit [facility] Medical Group - Endocrinology [facility] [address] [place] [address] Luis E Trent MD [address] [address] 12/04/2024 2:00 PM CDT Office Visit [facility] Medical Group - Internal Medicine - [place] [address] [place] [address] Gregoria Carver, PAC [address] [place] [address] documented as of this encounter Visit Diagnoses Not on filedocumented in this encounter Additional Health Concerns Assessment Noted Time PHQ-9 Depression Total Score: 0 05/26/19 23 1:00 PM CDT documented as of this encounter Care Teams Casting Tester Relationship Specialty Start Date End Date Gregoria Carver, PAC [address] [place] [address] PCP - General Physician Film Drying Machine Operator 02/22/21 Genaro Joseph DPM Consulting Physician Podiatry 10/19/15 Luis E Trent MD [address] [address] Consulting Physician Endocrinology 03/31/20 documented as of this encounter
--- OUTSIDE RECORDS SUMMARY | 2024-10-02 02:34 | XMS_ITS | Encounter Summary ---
Author Organization [facility] Address [address] [place] [address] Phone Care Team Providers Care Supervisor Lead Burning Name Role Phone Genaro Joseph DPM Unavailable [phone] Luis E Trent MD Unavailable Gregoria Carver PAC Primary Care Pro vider Reason for Visit * Reason Comments Medication Refill Encounter Details Date Type Department Care Team (Late st Contact Info) Description 03/23/2022 Refill [facility] Medical Group - Internal Medicine - [place] [address] [place] [id number] Gregoria Carver, PAC [address] [facility] [address] Medication Refill Social History Tobacco Use Types [...] Coronavirus/COVID-19? No / Unsure 03/17/2022 10:07 AM LINER ASSEMBLER documented as of this encounter Miscellaneous Notes [...] Office Visit Gregoria Carver, PAC [facility] [place] 08/04/21 Office Visit Gregoria Carver, PAC [facility] [place] 07/29/21 Office Visit Gregoria Carver, PAC [facility] [place] 07/15/21 Office Visit Gregoria Carver, PAC [facility] [place] 06/17/21 Office Visit Gregoria Carver, PAC [facility] [place] Showing recent visits within past 365 days [...] Office Visit Gregoria Carver, PAC [facility] [place] 08/04/21 Office Visit Gregoria Carver, PAC [facility] [place] 07/29/21 Office Visit Gregoria Carver, PAC [facility] [place] 07/15/21 Office Visit Gregoria Carver, PAC [facility] [place] 06/17/21 Office Visit Gregoria Carver, PAC [facility] [place] Showing recent visits within past 365 days and meeting all other requirements Future Appointments No visits were found meeting these conditions. Showing future appointments within next 90 days and meeting all other requirements Passed - GFR on record in past 12 months GFR, EST. NONAFRICAN Date Value Ref Range Status 07/12/2021 >60 >=60 Final R ASSEMBLER documented in this encounter Plan of Treatment Upcoming Encounters Date Type Department Care Team (Late st Contact Info) Description 10/14/2024 11:30 AM CDT [facility] [address] [place] [address] Billy Hubbard MD [address]1 [place] [address] Discharge Disposition: Discharged to home or Selfcare 11/27/2024 11:00 AM CDT Office Visit [facility] Medical [facility] - Endocrinology [facility] #[address] [place] [address] Luis E Trent MD [facility] [address] 12/04/2024 2:00 PM CDT Office Visit [facility] Internal Medicine [facility] [address] [place] [phone] Gregoria Carver, ANGEL [address] [place] [address] documented as of this encounter Visit Diagnoses Not on filedocumented in this encounter Additional Health Concerns Infection Onset Date Last Indicated Resolved Time MRSA 10/04/2022 02/06/2023 05/22/2023 9:05 AM CDT documented as of this encounter Care Teams Supervisor Lead Burning Relationship Specialty Start Date End Date Gregoria Carver, ANGEL [address] [place] [address] PCP - General Physician Die Machine Operator 02/22/21 Genaro Joseph DPM Consulting Physician Podiatry 10/19/15 Luis E Trent MD [address] [place] [address] [address] Consulting Physician Endocrinology 03/31/20 documented as of this encounter
--- OUTSIDE RECORDS SUMMARY | 2024-10-02 02:34 | XMS_ITS | Encounter Summary ---
Author Organization [facility] Address [address] [place] [address] Phone Care Team Providers Care Industrial Cleaning Technician Name Role Phone Genaro Joseph DPM Unavailable [phone] Luis E Trent MD Unavailable Gregoria Carver PAC Primary Care Pro vider Reason for Visit * Reason Comments Medication Refill Encounter Details Date Type Department Care Team (Late st Contact Info) Description 12/07/2021 Refill [facility] - Endocrinology [facility] #[address] [place] [address] Luis E Trent MD #[address] [address] Medication Refill Social History Tobacco [...] Med Name: BD UF SHORT PEN NEEDLE [id number] Sig: USE WITH INSULIN FOUR TIMES A DAY, MUST MAKE APPT Next appt: 12/30/2021 documented in this encounter Plan of Treatment Upcoming Encounters Date Type Department Care Team (Late st Contact Info) Description 10/14/2024 11:30 AM CDT Office Visit [facility] [address] [place] [address] Billy Hubbard MD [address] [place] [address] Discharge Disposition: Discharged to home or Selfcare 11/27/2024 11:00 AM CDT Office Visit [facility] Medical [facility] - Endocrinology [facility] #[address] [place] [address] Luis E Trent MD #[address] [address] 12/04/2024 2:00 PM CDT Office Visit [facility] Medical Group - Internal Medicine - [place] [address] [place] [phone] Gregoria Carver, [facility] [address] [place] [address] documented as of this encounter Visit Diagnoses Diagnosis Type 2 diabetes mellitus with diabetic polyneuropathy, with long-term current use of insulin (HCC) documented in this encounter Additional Health Concerns Infection Onset Date Last Indicated Resolved Time MRSA 10/04/2022 02/06/2023 05/22/2023 9:05 AM CDT documented as of this encounter Care Teams Industrial Cleaning Technician Relationship Specialty Start Date End Date Gregoria Carver PAC [address] [place] [address] PCP - General Physician Music Supervisor 02/22/21 Genaro Joseph DPM Consulting Physician Podiatry 10/19/15 Luis E Trent MD #[address] [address] Consulting Physician Endocrinology 03/31/20 documented as of this encounter
[2024-10-02] MEDS: IBUPROFEN 400 MG TABLET 800 MG PO (03:18)
[2024-10-02] MEDS: ACETAMINOPHEN 500 MG TABLET 1000 MG PO (03:18)
--- NOTE | 2024-10-02 03:31 | ED.GENADULT ---
HPI - General Adult General Chief complaint: Unspecified Stated complaint: swollen feet, off of meds, Time Seen by Provider: 10/02/24 01:59 History of Present Illness HPI narrative: 44-year-old male with a past medical history including diabetes and potentially some developmental delay verses chronic psychiatric illness. Patient presents to the emergency department with family members for concerns that he was outside his hotel wandering around the street barefoot. Patient does have evidence of some blistering to his bilateral lower extremities worse on the right side from walking outside barefoot. He is not any acute distress and does not want to be here. Patient denies any pain aside from some mild pain on the right heel where he has a large blister. Denies any falls or injuries. Family provides collateral formation and states that he has not taking his own diabetic her psychiatric medications. Patient is currently established with [facility] and supposed to be staying in hotel with a home health care social worker involved in his care. No traumatic injuries. Patient has no complaints at this time and overall is well appearing not any acute distress. No signs of urgency or emergency. Related Data Home Medications ?Medication ?Instructions ?Recorded ?Confirmed ?Last Taken ?Type atorvastatin 40 mg tablet mg 09/20/24 Unknown History divalproex 250 mg tablet,delayed mg PO 09/20/24 Unknown History release lurasidone 120 mg tablet mg 09/20/24 Unknown History metformin 1,000 mg tablet mg 09/20/24 Unknown History Allergies Allergy/AdvReac Type Severity Reaction Status Date / Time No Known Allergies Allergy Verified 10/01/24 20:57 Review of Systems Review of Systems: As reviewed above in [facility] Social History Social History Substance use type: does not use Exam Narrative: GENERAL: [Well-appearing, well-nourished, and in no acute distress.] HEAD: [Normocephalic, atraumatic.] EYES: [PERRLA and EOMI.] ENT: Nares clear, no rhinorrhea or epistaxis. Mucous membranes moist. NECK: Supple. CHEST: [Clear to auscultation. No respiratory distress.] HEART: [Regular rate and rhythm]. No murmur heard. [Normal peripheral pulses.] ABDOMEN: [Soft, nondistended], [nontender], [No rigidity or guarding] EXTREMITIES: Normal range of motion of bilateral lower extremities, blistering to the bilateral lower extremities around the heels with serosanguineous blisters, no hemorrhagic blisters or purulent drainage. 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 SKIN: Warm, dry, no rash. NEURO: [No focal deficits]. Alert and oriented [x3.] PSYCH: Flat affect, no psychiatric symptoms at this time Course Vital Signs Vital signs: Vital Signs Temperature 36.6 C 10/01/24 21:09 Pulse Rate 93 10/01/24 21:09 Respiratory Rate 16 10/01/24 21:09 Blood Pressure 138/86 10/01/24 21:09 Pulse Oximetry 100 10/01/24 21:09 Oxygen Delivery Room Air 10/01/24 21:09 Temperature 36.6 C 10/01/24 21:09 Pulse Rate 80 10/02/24 03:31 Respiratory Rate 14 10/02/24 03:31 Blood Pressure 123/80 10/02/24 03:31 Pulse Oximetry 100 10/02/24 03:31 Oxygen Delivery Room Air 10/01/24 21:09 Medical Decision Making MDM Narrative Medical decision making narrative: 44-year-old male with a past medical history including diabetes and potentially some developmental delay verses chronic psychiatric illness. Patient presents to the emergency department with family members for concerns that he was outside his hotel wandering around the street barefoot. Patient does have evidence of some blistering to his bilateral lower extremities worse on the right side from walking outside barefoot. He is not any acute distress and does not want to be here. Patient denies any pain aside from some mild pain on the right heel where he has a large blister. Denies any falls or injuries. Family provides collateral formation and states that he has not taking his own diabetic her psychiatric medications. Patient is currently established with [facility] and supposed to be staying in hotel with a home health care social worker involved in his care. No traumatic injuries. Patient has no complaints at this time and overall is well appearing not any acute distress. No signs of urgency or emergency. Normal range of motion of bilateral lower extremities, blistering to the bilateral lower extremities around the heels with serosanguineous blisters, no hemorrhagic blisters or purulent drainage. 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 Patient has a home health care social worker reportedly working on longterm house placement with the patient and family per previous documentation. Patient is not any acute distress, laboratory studies were ordered he was given ibuprofen and Tylenol for his blister pain. Mild trench foot from walking in the water but otherwise unremarkable exam. Workup shows no leukocytosis or significant anemia. Normal platelet count. Mild hyperglycemia but no signs of anion gap or significant acidosis. Normal GFR and creatinine. Unremarkable LFTs. Urine with no ketones and no signs of infection. Patient has no complaints and is safe for discharge with family members. Medical Records Medical records reviewed: Yes I reviewed the external patient's medical records. Vital Signs Vital Signs: Vital Signs Temperature 36.6 C 10/01/24 21:09 Pulse Rate 93 10/01/24 21:09 Respiratory Rate 16 10/01/24 21:09 Blood Pressure 138/86 10/01/24 21:09 Pulse Oximetry 100 10/01/24 21:09 Oxygen Delivery Room Air 10/01/24 21:09 Temperature 36.6 C 10/01/24 21:09 Pulse Rate 80 10/02/24 03:31 Respiratory Rate 14 10/02/24 03:31 Blood Pressure 123/80 10/02/24 03:31 Pulse Oximetry 100 10/02/24 03:31 Oxygen Delivery Room Air 10/01/24 21:09 Lab Data Lab results reviewed: Yes I reviewed the patient's lab results. 10/01/24 23:03 10/01/24 23:03 Labs: Lab Results 10/01/24 10/01/24 Range/Units 23:03 23:04 WBC 8.9 (4.5-10.0) K/mm3 RBC 3.81 L (4.6-6.20) M/mm3 Hgb 10.8 L (14.0-18.0) g/dL Hct 32.9 L (42.0-52.0) % MCV 86.4 (80-100) fl MCH 28.3 (26-34) pg MCHC 32.8 (32-36) g/dl RDW 13.5 (11.5-14.5) % Plt Count 165 (150-375) k/mm3 MPV 11.1 H (7.4-10.4) fl Immature Gran % (Auto) 0.3 (0-0.5) % Neut % (Auto) 60.8 (45.5-73.1) % Lymph % (Auto) 25.6 (18.3-44.2) % Trinity % (Auto) 11.8 H (2.6-8.5) % Eos % (Auto) 1.2 (0-4.4) % Baso % (Auto) 0.3 (0.2-1.2) % Lymph # (Auto) 2.27 (0.9-3.2) K/mm3 Trinity # (Auto) 1.1 H (0.1-0.6) K/mm3 Eos # (Auto) 0.1 (0-0.3) K/mm3 Baso # (Auto) 0.0 (0.0-0.1) K/mm3 Abs Immat Gran (auto) 0.03 (0.00-0.031) K/mm3 Absolute Neuts (auto) 5.4 (1.3-6.7) K/mm3 Absolute Nucleated RBC 0.000 (0.0-0.012) K/mm3 Nucleated RBC % 0.0 (0.0-0.2) % Sodium 129 L (137-145) mmol/L Potassium 3.7 (3.4-5.0) mmol/L Chloride 100 (98-107) mmol/L Carbon Dioxide 19 L (22-30) mmol/L Anion Gap 10 (4-12) mmol/L BUN 25 H (9-20) mg/dL Creatinine 0.97 (0.7-1.3) mg/dL Estim Creat Clear Calc 92 ml/min Estimated GFR > 60 (59 - ) Glucose 256 H (65-110) mg/dL Calcium 8.8 (8.4-10.2) mg/dL Total Bilirubin 0.7 (0.2-1.3) mg/dL AST 28 (17-59) U/L ALT 31 (6-50) U/L Alkaline Phosphatase 60 (38-126) U/L Total Protein 7.2 (6.3-8.2) g/dL Albumin 4.0 (3.5-5.1) g/dL Urine Color Yellow (Yellow) Urine Appearance Clear (Clear) Urine pH 5.5 (5.0-9.0) Ur Specific Ezel 1.015 (1.001-1.035) Urine Protein Negative (Negative) mg/dL Urine Glucose (UA) 3+ H (Negative) mg/dL Urine Ketones Negative (Negative) mg/dL Ur Blood (Man) Negative (Negative) Urine Nitrate Negative (Negative) Urine Bilirubin Negative (Negative) Urine Urobilinogen 0.2 (<2.0) mg/dL Leukocyte Esterase Rfl Negative (Negative) NORMA/UL Discharge Plan Discharge Clinical Impression: Blister of foot, right, Blister of foot, left, Diabetes mellitus Patient Disposition: Home Condition: Stable Instructions: Antibiotic Form Patient Language: French Prescriptions: No Action atorvastatin 40 mg tablet divalproex 250 mg tablet,delayed release (DR/EC) PO metformin 1,000 mg tablet lurasidone 120 mg tablet Follow-up/Referrals: Adam Wilson MD [Primary Care Provider] - Time of Disposition: 03:37
== END 2024-10-02 03:53 | disposition home or self-care (01) ==
PROVIDERS: Emergency Provider Student in an Organized Health Care Education/Training Program; PCP Family Medicine
DX: S90.822A Blister (nonthermal), left foot, initial encounter (principal); S90.821A Blister (nonthermal), right foot, initial encounter; E11.9 Type 2 diabetes mellitus without complications; T38.3X6A Underdosing of insulin and oral hypoglycemic [antidiabetic] drugs, initial encounter; T43.506A Underdosing of unspecified antipsychotics and neuroleptics, initial encounter; X58.XXXA Exposure to other specified factors, initial encounter
CPT/HCPCS: 36415; 80053; 81003; 85025; 93005; 99283; A9270